=== PATIENT | male | born 1980 | race Caucasian/White ===

== ENCOUNTER → 2018-05-21 10:38 | Outpatient (CLI) | payer BC, SELFPAY ==
[2018-05-23 10:04] LABS: Semen Analysis Post Vas PRESENT
== END ==
LOC: LABSPEC 10:46
DX: N46.9 Male infertility, unspecified (principal)
CPT/HCPCS: 89321

== ENCOUNTER 2025-07-06 06:12 | Emergency (ER) | payer BC, SELFPAY ==
[2025-07-06 06:12] VITALS: BP 125/85; PULSE 115; RESP 19; TEMP 36.9; O2SAT 96; BMI 34.5
[2025-07-06 06:15] VITALS: BP 127/77; PULSE 115; RESP 19; TEMP 36.9; O2SAT 93
[2025-07-06] MEDS: Ketorolac 30 MG/ML Syringe IV (06:48)
[2025-07-06] MEDS: 0.9% Normal Saline (1000mL) 1,000 ML 999 ML IV ×2 (06:48→08:05)
--- NOTE | 2025-07-06 06:53 | EX.ED.DYSGE1 ---
HPI History of Present Illness Chief Complaint: Fever Informant: patient and spouse/S.O. Narrative Narrative: Patient is a 45-year-old male with past medical history of vaping but otherwise denies any previous medical problems. He states multiple people at home have been sick with "the flu". He states he has had subjective fevers and chills for the past 2 to 3 days. He states yesterday he felt he may be getting over his symptoms but then awoke this morning with fever once again as well as muscle aches and fatigue. Therefore with the worsening symptoms he was concern for potential infection and dehydration and therefore presents for evaluation [facility] Medical History no medical history Home Medications Medication Instructions Recorded Last Taken Type dupilumab 300 mg/2 mL subcutaneous mg subcut 07/06/25 Unknown History pen injector (DupixDrivy) ondansetron 4 mg disintegrating 4 mg PO TID PRN nausea and 07/06/25 Unknown Rx tablet vomiting #21 tabs prednisone 20 mg tablet 40 mg (2 x 20 mg) PO DAILY 5 days 07/06/25 Unknown Rx #10 tabs semaglutide (weight loss) 2.4 2.4 mg subcut QWEEK 07/06/25 Unknown History mg/0.75 mL subcutaneous pen injector (Wegovy) Allergy/AdvReac Type Severity Reaction Status Date / Time No Known Allergies Allergy Verified 07/06/25 06:13 Surgical History no surgical history Social History Smoking Status: Former smoker [facility] ED Constitutional Constitutional ED: Reports chills, fever(s) and other Details: Positive fatigue Eyes Eyes: Denies change in vision ENT ENT ED: Reports rhinorrhea and sore throat Cardiovascular Cardiovascular: Denies chest pain Respiratory/Chest Respiratory/Chest: Reports cough; Denies dyspnea Gastrointestinal Gastrointestinal: Reports nausea; Denies abdominal pain, diarrhea or vomiting Genitourinary Genitourinary ED: Denies dysuria Musculoskeletal Musculoskeletal: Reports myalgias Integumentary Denies rash Neurologic Neurologic: Denies headache(s) Hematologic/Lymphatic Hematologic/Lymphatic: Denies easy bleeding or easy bruising EXAM Physical Exam Const Vital Signs: 07/06/25 06:12 07/06/25 06:12 07/06/25 06:15 Temperature 98.5 F 98.5 F Temperature Source Oral Oral Pulse Rate 115 H 115 H Respiratory Rate 19 H 19 H Respiratory Effort Normal Non-Labored Blood Pressure 125/85 H 127/77 H Blood Pressure Mean 98 93 Pulse Ox 96 93 Oxygen Delivery Method Room Air Room Air 07/06/25 07:16 Temperature 98.8 F Temperature Source Oral Pulse Rate 90 Respiratory Rate 16 Respiratory Effort Blood Pressure 126/75 H Blood Pressure Mean 92 Pulse Ox 95 Oxygen Delivery Method Room Air Positive well nourished and well developed General Appearance ED: well developed; Negative for pallor HEENT HEENT Narrative: Normocephalic atraumatic No tongue or lip swelling no oral lesions no airway edema or compromise Cobblestoning is noted in the posterior pharynx consistent with sinus drainage; no secondary findings to suggest infection Mucous membranes are mildly dry and tacky Eyes PERRL and EOMs intact bilaterally General Eye ED: Negative for scleral icterus Neck supple Neck Narrative: Positive anterior cervical adenopathy is noted No nuchal rigidity or meningeal signs Resp normal respiratory effort Resp Narrative: Breath sounds are slight diminished throughout with faint expiratory wheeze in the bilateral lower lobes but no nasal flaring retractions tachypnea or accessory muscle use Cardio regular rhythm Rate: tachycardic and other Other Details: Tachycardic rate with regular rhythm No murmurs rubs or gallops Radial and carotid pulses are equal and symmetric GI non-tender, non-distended and no masses GI Narrative: Abdomen is soft nontender and nondistended with hyperactive bowel sounds No voluntary guarding or rigidity or pulsatile mass No peritoneal signs Auscultation: hyperactive bowel sounds Palpation: soft Extremity normal to inspection Extremity Narrative: No asymmetric edema no pitting edema negative Homans' sign bilaterally Neuro oriented x3, CN's II-XII intact bilaterally and no sensory deficits noted Sensorium / Orientation: alert Motor Exam: strength 5/5 throughout Psych mental status grossly normal Skin no rashes or lesions noted and No skin turgor normal Skin Narrative: Skin turgor is slightly increased General Skin Exam: Negative for jaundice or pallor MDM MDM MDM Narrative Medical decision making narrative: Patient arrived to the ER with spontaneous resolution of his reported fever at home but otherwise he was mildly tachycardic. He reports multiple sick contacts at home with similar symptoms and his presentation is most consistent with viral infection such as COVID influenza or RSV. Therefore viral swab will be obtained. His pulse ox is in the mid 90s on room air he does not have any increased work of breathing and by physical exam there is no obvious findings to suggest pneumonia so I felt no need for chest x-ray. Based on his mild tachycardia and increased skin tenting I do feel that he has findings concerning for mild dehydration and therefore he was given 2 L of IV fluid and in order to help resolve his myalgias he was given Toradol and Decadron. After receiving his treatment he reported improvement of symptoms and vital stabilized. His viral swab was positive for influenza A consistent with his exposure and symptoms. As he is not in respiratory distress or requiring supplemental oxygen or showing signs of sepsis there is no need for further intervention and he is otherwise safe for discharge with symptomatic care History & Record Review Discussion w/independent historian: Patient and Significant other Discharge Plan Triage Chief Complaint: Fever ED Provider: Eric Montano Dx/Rx/DC Orders Clinical Impression: Viral syndrome, Dehydration Instructions: ED Dehydration (Adult), ED Viral Syndrome (Adult) Prescriptions: New prednisone 20 mg tablet 40 mg PO DAILY 5 Days Qty: 10 0RF ondansetron 4 mg tablet,disintegrating 4 mg PO TID PRN (Reason: nausea and vomiting) Qty: 21 0RF No Action Dupixent Pen 300 mg/2 mL pen injector SUBCUT Patient Comments: [NO ORIGINAL SIG] Wegovy 2.4 mg/0.75 mL pen injector 2.4 mg subcut QWEEK Primary Care Provider: Miguelito SILVA Referrals: Miguelito SILVA [Other] Activity Restrictions/Additional Instructions: You tested negative for influenza COVID and RSV however your symptoms indicate you have a other viral infection. This should resolve spontaneously over the next 2 to 5 days. Take the prescribed medication as directed to control inflammation and nausea and keep yourself well-hydrated. Use Tylenol and/or Motrin for pain and fever control. If symptoms worsen or you have any further concerns return to the ER for repeat evaluation Print Language: Tristanian Disposition Disposition: Home, Self Care
--- OUTSIDE RECORDS SUMMARY | 2025-07-06 06:54 | XMS RPT_ITS | CCD ---
Author Organization [facility] Care Team Providers Care Truck Greaser Name Role Phone AKHIL HASTINGS Unavailable Unavailable AKHIL HASTINGS Unavailable Unavailable Primay Care Physicia, No Unavailable Unavail able Thomas Patterson Admitting Unavailable Thomas Patterson Attending Unavailable Unavailable Primary Care Provider JOHNATHAN Rebollar Referring Unavailable TENISHA CEVALLOS CNP Attending Unavailable FEI, SARPREET Primary Care Unavailable RAMULEWIS LAMAS CNP Attending Unavailab le FEI, SARPREET Primary Care Unavailable FEI, SARPREET Primary Care Unavailable LEWIS GUALLPA CNP Attending Unavailab le FEI, SARPREET Primary Care Unavailable RAMULEWIS LAMAS CNP Attending Unavailab le FEI, SARPREET Primary Care Unavailable FEI, SARPREET Primary Care Unavailable TENISHA CEVALLOS CNP Attending Unavailable JOI MOYA Attending Unavailable NIRMALA PAGAN Referring Unavailable [facility]I [facility] Physician FEI, SARPREET Primary Care Unavailable FEI, SARPREET Primary Care Unavailable FEI, SARPREET Primary Care Unavailable FEI, SARPREET Primary Care Unavailable [employer] DIRECTOR-ORTHOTICS TECHNICIANKAROL Referring Unavailab le FEI, SARPREET Primary Care Unavailable [employer] DIRECTOR-ORTHOTICS TECHNICIANKAROL Referring Unavailab le FEI, SARPREET Primary Care Unavailable [employer] DIRECTOR-ORTHOTICS TECHNICIANKAROL Referring Unavailab le FEI, SARPREET Primary Care Unavailable FEI, SARPREET Primary Care Unavailable FEI, SARPREET Primary Care Unavailable DEON AMADOR CNP Attending Unavailable FEI, SARPREET Primary Care Unavailable FEI, SARPREET Primary Care Unavailable Allergies Allergy Classification Reported Allergen(s) Allergy Type Date of Onset Reaction(s) Facility (1 source) ALLERGIES NOT ON FILE; Translations: [ALLERGIES NOT ON FILE] Propensity to adverse reactions (disorder) [facility] 2 Repository Medications Current Medications Medication Drug Class(es) Dates Sig (Normalized) Sig (Original) Dupixent Pre-filled Pen (1 source) Start: 10-21-2023 inject 1 dose by subcutaneous injection once in the morning Dupixent Pre-filled Pen Subcutaneous, ONCE, Date: 10/21/23 11:36:00 AM EDT Start Date: 10/21/23 Status: Ordered Medication Dispense Status: Completed Total Allowed Fills: 1 Fills Dispensed: 0 predniSONE 10 mg oral tablet (1 source) Start: 04-25-2023 End: 05-01-2023 predniSONE (DELTASONE) 10 mg tablet Indications: Acute pain of right knee Take by mouth 6 pills on day 1, 5 pills on day 2, 4 pills on day 3, 3 pills on day 4, 2 pills on day 5, 1 pill on day 6 21 tablet 0 04/25/2023 05/01/2023 Active Comment on above: Take by mouth 6 pill s on day 1, 5 pills on day 2, 4 pills on day 3, 3 pills on day 4, 2 pills on day 5, 1 pill on day 6 rivaroxaban 20 mg oral tablet (3 sources) Factor Xa Inhibitor Start: 10-29-2024 take 1 tablet by mouth once daily in the evening Xarelto 20 mg oral tablet 20 mg 1 tabs, ORAL, QPM, 30 tabs, Date: 03/16/25 9:53:00 AM EDT, [facility], 1 tabs ORAL QPM Start Date: 03/16/25 Status: Ordered Medication Dispense Status: Completed Quantity: 30.0 Unit: tabs Total Allowed Fills: 2 Fills Dispensed: 0 Start: 10-29-2024 End: 11-28-2024 take 1 tablet by mouth once Xarelto Starter Pack 15 mg -20 mg oral tablet 1 packets, ORAL, ONCE, as directed on package labeling; Lot # [id number] Exp 09/01, 1 packets, Date: 10/29/24 12:14:00 PM EDT Start Date: 10/29/24 Stop Date: 11/28/24 Status: Ordered Medication Dispense Status: Completed Quantity: 1.0 Unit: packets Total Allowed Fills: 1 Fills Dispensed: 0 Zepbound (1 source) Start: 06-01-2024 inject 1 dose by subcutaneous injection in the morning Zepbound Subcutaneous, Date: 06/01/24 10:03:00 AM EST Start Date: 06/01/24 Status: Ordered Medication Dispense Status: Completed Total Allowed Fills: 1 Fills Dispensed: 0 Completed/Discontinued Medications Medication Drug Class(es) Dates Sig (Normalized) Sig (Original) sertraline 50 mg oral tablet (1 source) Serotonin Reuptake Inhibitor Start: 04-25-2023 sertraline (ZOLOFT) 50 mg tablet Problems Active Problems Problem Classification Problem Date Documented Da te Episodic/Chronic Anxiety disorders (1 source) Anxiety 04-29-2023 Chronic Joint disorders and dislocations; trauma-related (2 sources) Other disorders of patella, left knee; Translations: [Other disorders of patella, left knee] Onset: 09-02-2023 Chronic Other aftercare (1 source) Surgical follow-up 02-28-2024 Episodic Other male genital disorders (1 source) Male infertility, unspecified; Translations: [N46.9 - Male infertility, unspecified] Onset: 05-21-2018 Episodic Other nervous system disorders (2 sources) Other chronic pain; Translations: [Other chronic pain] Onset: 09-02-2023 Chronic Other non-traumatic joint disorders (1 source) Pain in right knee; Translations: [Acute pain of right knee] Onset: 04-25-2023 Episodic Other nutritional; endocrine; and metabolic disorders (1 source) Body mass index 40+ - severely obese 07-30-2023 Chronic Other nutritional; endocrine; and metabolic disorders (1 source) Morbid obesity 04-29-2023 Chronic Residual codes; unclassified (1 source) Past history of procedure 06-01-2024 Episodic Varicose veins of lower extremity (2 sources) Venous varices; Translations: [Asymptomatic varicose veins of unspecified lower extremity] Onset: 05-20-2014 07-03-2021 Episodic Past or Other Problems Problem Classification Problem Date Documented Da te Episodic/Chronic Other non-traumatic joint disorders (2 sources) Pain in left knee; Translations: [Pain in left knee] Onset: 09-02-2023 Episodic Residual codes; unclassified (2 sources) Localized edema; Translations: [Localized edema] Onset: 09-02-2023 Episodic Results Test Name Value Interpretation Reference Range Facility AUTO DIFFon 07-20-2024 Baso Count 0.04 x1000 Normal 0.00-0.20 [facility] Comment on above: Order Comment: FX TO [phone] Performed By: #### 1 33379, 2611752, 912837, 0370530, 404079 #### [facility] [address] [place] [address] 90640 Solderer: Sigifredo Pace MD Basos % 0.6 % Normal [facility] Comment on above: Order Comment: FX TO [phone] Performed By: #### 1 96954, 2407003, 236469, 3197372, 256272 #### [facility] [address] [place] [address] 19321 Solderer: Sigifredo Pace MD Eos Count 0.06 x1000 Normal 0.00-0.50 [facility] Comment on above: Order Comment: FX TO [phone] Performed By: #### 1 76863, 2517459, 178764, 1523088, 909367 #### [facility] [address] [place] [address] 46201 Solderer: Sigifredo Pace MD Eosinophils/100 WBC (Bld) 1.0 % Normal [facility] Comment on above: Order Comment: FX TO [phone] Performed By: #### 1 31743, 6408217, 417048, 3836292, 958792 #### [facility] [address] [place] [address] 51292 Solderer: Sigifredo Pace MD Lymph Count 1.84 x1000 Normal 1.20-4.80 [facility] Comment on above: Order Comment: FX TO [phone] Performed By: #### 1 08392, 6185514, 371285, 8058346, 311321 #### [facility] [address] [place] [address] 70377 Solderer: Sigifredo Pace MD Lymphocytes/100 WBC (Bld) 29.0 % Normal [facility] Comment on above: Order Comment: FX TO [phone] Performed By: #### 1 24641, 9410873, 486983, 7922477, 205554 #### [facility] [address] [place] [address] 27485 Solderer: Sigifredo Pace MD Haywood Count 0.35 x1000 Normal 0.10-1.00 [facility] Comment on above: Order Comment: FX TO [phone] Performed By: #### 1 87471, 8384827, 464890, 0275495, 006826 #### [facility] [address] [place] [address] 39199 Solderer: Sigifredo Pace MD Monocytes/100 WBC (Bld) 5.5 % Normal [facility] Comment on above: Order Comment: FX TO [phone] Performed By: #### 1 29926, 5577930, 213228, 6526893, 751242 #### [facility] [address] [place] [address] 99379 Solderer: Sigifredo Pace MD Neutrophil Count (ANC) 4.05 x1000 Normal 1.40-8.80 [facility] Comment on above: Order Comment: FX TO [phone] Performed By: #### 1 29816, 6203362, 865609, 7429142, 990284 #### [facility] [address] [place] [address] 94426 Solderer: Sigifredo Pace MD Neutrophils/100 WBC (Bld) 63.9 % Normal [facility] Comment on above: Order Comment: FX TO [phone] Performed By: #### 1 58997, 5004413, 976844, 0555576, 388682 #### [facility] [address] [place] [address] 92578 Solderer: Sigifredo Pace MD COMPMETAon 07-20-2024 Albumin [Mass/Vol] 3.7 g/dL Normal 3.4-5.0 [facility] Comment on above: Order Comment: FX TO [phone] Performed By: #### 1 47214, 3389134, 319784, 6914093, 452602 #### [facility] [address] [place] [address] 23666 Solderer: Sigifredo Pace MD Albumin/Globulin [Mass ratio] 1.2 {ratio} Normal [facility] Comment on above: Order Comment: FX TO [phone] Performed By: #### 1 00434, 7393141, 342183, 1134304, 320688 #### [facility] [address] [place] [address] 68556 Solderer: Sigifredo Pace MD Alk Phos 73 unit/L Normal 45-117 [facility] Comment on above: Order Comment: FX TO [phone] Performed By: #### 1 67807, 7596927, 993009, 1685866, 237929 #### [facility] [address] [place] [address] 25806 Solderer: Sigifredo Pace MD Bilirubin [Mass/Vol] 0.40 mg/dL Normal 0.30-1.20 [facility] Comment on above: Order Comment: FX TO [phone] Result Comment: Use of this assay is not recommended for patients undergoing treatment with eltrombopag due to the potential for falsely elevated results. Performed By: #### 1 73579, 6415238, 369545, 0899651, 265624 #### [facility] [address] [place] [address] 07684 Solderer: Sigifredo Pace MD Calcium [Mass/Vol] 9.4 mg/dL Normal 8.7-10.4 [facility] Comment on above: Order Comment: FX TO [phone] Performed By: #### 1 52923, 3955104, 410880, 7526131, 414874 #### [facility] [address] [place] [address] 19968 Solderer: Sigifredo Pace MD Chloride [Moles/Vol] 105 mmol/L Normal 98-107 [facility] Comment on above: Order Comment: FX TO [phone] Performed By: #### 1 63195, 9827200, 197178, 6573415, 968365 #### [facility] [address] [place] [address] 08902 Solderer: Sigifredo Pace MD CO2 [Moles/Vol] 31.0 mmol/L Normal 20.0-31.0 [facility] Comment on above: Order Comment: FX TO [phone] Performed By: #### 1 97635, 4758770, 353356, 5469598, 047085 #### [facility] [address] [place] [address] 07880 Solderer: Sigifredo Pace MD Creatinine [Mass/Vol] 0.9 mg/dL Normal 0.6-1.1 [facility] Comment on above: Order Comment: FX TO [phone] Performed By: #### 1 13012, 8956583, 273285, 9577591, 204966 #### [facility] [address] [place] [address] 92008 Solderer: Sigifredo Pace MD GFR AA >[address] [facility] Comment on above: Order Comment: FX TO [phone] Result Comment: Afri can [place] Citizen GFR Calc Medical judgement is necessary to interpret GFR. The calculated GFR may not accurately reflect renal status in patients >70 years, women, acutely ill hospitalized patients and patients with acute renal failure or known renal disease. The MDRD GFR formula is valid only for adults greater than 18 years of age. Note: Creatinine clearance (not GFR) should be used for drug dosing. Performed By: #### 1 89296, 1840880, 030284, 0706188, 152271 #### [facility] [address] [place] [address] 68928 Solderer: Sigifredo Pace MD Globulin (S) [Mass/Vol] 3.1 g/dL Normal [facility] Comment on above: Order Comment: FX TO [phone] Performed By: #### 1 90051, 6523896, 909792, 1031893, 951252 #### [facility] [address] [place] [address] 59652 Solderer: Sigifredo Pace MD Glomerular Filtration Rate >[address] [facility] Comment on above: Order Comment: FX TO [phone] Result Comment: Non- GFR Calc Medical judgement is necessary to interpret GFR. The calculated GFR may not accurately reflect renal status in patients >70 years, women, acutely ill hospitalized patients and patients with acute renal failure or known renal disease. The MDRD GFR formula is valid only for adults greater than 18 years of age. Note: Creatinine clearance (not GFR) should be used for drug dosing. Performed By: #### 1 74757, 0660472, 181878, 1398463, 159227 #### [facility] [address] [place] [address] 02994 Solderer: Sigifredo Pace MD Glucose [Mass/Vol] 85 mg/dL Normal 74-106 [facility] Comment on above: Order Comment: FX TO [phone] Performed By: #### 1 75182, 1302230, 731162, 6674584, 124488 #### [facility] [address] [place] [address] 28436 Solderer: Sigifredo Pace MD GOT 14 unit/L Low 15-37 [facility] Comment on above: Order Comment: FX TO [phone] Performed By: #### 1 14323, 6843841, 104146, 0565618, 286261 #### [facility] [address] [place] [address] 63951 Solderer: Sigifredo Pace MD GPT 12 unit/L Normal 10-49 [facility] Comment on above: Order Comment: FX TO [phone] Performed By: #### 1 97474, 0680168, 623181, 6001308, 361052 #### [facility] [address] [place] [address] 51042 Solderer: Sigifredo Pace MD Osmolality [Osmolality] 283 mosm/kg Normal 275-295 [facility] Comment on above: Order Comment: FX TO [phone] Performed By: #### 1 80784, 5572044, 153302, 7206430, 101780 #### [facility] [address] [place] [address] 79969 Solderer: Sigifredo Pace MD Potassium [Moles/Vol] 4.2 mmol/L Normal 3.5-5.1 [facility] Comment on above: Order Comment: FX TO [phone] Result Comment: Spec imen slightly hemolyzed. Results may be affected. Performed By: #### 1 50950, 5531360, 014806, 1422371, 235778 #### [facility] [address] [place] [address] 06596 Solderer: Sigifredo Pace MD Protein [Mass/Vol] 6.8 g/dL Normal 5.7-8.2 [facility] Comment on above: Order Comment: FX TO [phone] Result Comment: Tota l Protein results may be increased in patients receiving dextran as a blood volume direct of real estate Performed By: #### 1 44977, 9893034, 459686, 8403973, 947019 #### [facility] [address] [place] [address] 11830 Solderer: Sigifredo Pace MD Sodium [Moles/Vol] 142 mmol/L Normal 135-145 [facility] Comment on above: Order Comment: FX TO [phone] Performed By: #### 1 31261, 5893541, 013610, 8563597, 531857 #### [facility] [address] [place] [address] 83484 Solderer: Sigifredo Pace MD Urea nitrogen [Mass/Vol] 13 mg/dL Normal 9-23 [facility] Comment on above: Order Comment: FX TO [phone] Result Comment: - Ve nipuncture should occur prior to N-Acetyl Cysteine (NAC) or Metamizole (Sulpyrine) administration due to the potential for falsely depressed results. - Blood samples from some patients with monoclonal gammopathies may produce falsely elevated results Performed By: #### 1 76513, 8691719, 053232, 6339824, 996745 #### [facility] [address] [place] [address] 61314 Solderer: Sigifredo Pace MD Urea nitrogen/Creatinin e [Mass ratio] 14.4 mg/mg Normal [facility] Comment on above: Order Comment: FX TO [phone] Performed By: #### 1 29127, 0225374, 975316, 8486327, 813120 #### [facility] [address] [place] [address] 60757 Solderer: Sigifredo Pace MD HEMOon 07-20-2024 DIFF? No Normal [facility] Comment on above: Order Comment: FX TO [phone] Performed By: #### 1 07928, 8170206, 271993, 2118251, 583218 #### [facility] [address] [place] [address] 98886 Solderer: Sigifredo Pace MD Erythrocyte distribution width (RBC) [Ratio] 13.7 % Normal 11.5-14.5 [facility] Comment on above: Order Comment: FX TO [phone] Performed By: #### 1 72319, 1820266, 343444, 5758718, 541495 #### [facility] [address] [place] [address] 49286 Solderer: Sigifredo Pace MD Hematocrit (Bld) [Volume fraction] 42.2 % Normal 41.0-52.0 [facility] Comment on above: Order Comment: FX TO [phone] Performed By: #### 1 28993, 0021136, 958892, 0380519, 546346 #### [facility] [address] [place] [address] 59889 Solderer: Sigifredo Pace MD Hemoglobin (Bld) [Mass/Vol] 14.0 g/dL Normal 13.5-17.5 [facility] Comment on above: Order Comment: FX TO [phone] Performed By: #### 1 80689, 9813821, 120238, 0401753, 069286 #### [facility] [address] [place] [address] 42721 Solderer: Sigifredo Pace MD Instr WBC 6.[address] [facility] Comment on above: Order Comment: FX TO [phone] Performed By: #### 1 40121, 4111695, 750209, 9355146, 177369 #### [facility] [address] [place] [address] 74876 Solderer: Sigifredo Pace MD MCH (RBC) [Entitic mass] 28.2 pg Normal 27.0-34.0 [facility] Comment on above: Order Comment: FX TO [phone] Performed By: #### 1 80847, 4301200, 581420, 8132942, 444234 #### [facility] [address] [place] [address] 78733 Solderer: Sigifredo Pace MD MCHC (RBC) [Mass/Vol] 33.2 g/dL Normal 32.0-37.0 [facility] Comment on above: Order Comment: FX TO [phone] Performed By: #### 1 04780, 4782013, 377346, 2373676, 099196 #### [facility] [address] [place] [address] 61970 Solderer: Sigifredo Pace MD MCV (RBC) [Entitic vol] 84.9 fL Normal 80.0-100.0 [facility] Comment on above: Order Comment: FX TO [phone] Performed By: #### 1 48498, 2729050, 965964, 4900478, 536998 #### [facility] [address] [place] [address] 83236 Solderer: Sigifredo Pace MD Nucleated RBC 0 /100WBC Normal [facility] Comment on above: Order Comment: FX TO [phone] Performed By: #### 1 71828, 0740991, 874487, 5573856, 390450 #### [facility] [address] [place] [address] 43960 Solderer: Sigifredo Pace MD Platelet 232 x10 Normal 150-450 [facility] Comment on above: Order Comment: FX TO [phone] Performed By: #### 1 76657, 2853033, 017917, 9502565, 128512 #### [facility] [address] [place] [address] 79971 Solderer: Sigifredo Pace MD Platelet mean volume (Bld) [Entitic vol] 10.4 fL Normal 7.4-10.4 [facility] Comment on above: Order Comment: FX TO [phone] Performed By: #### 1 29882, 0836157, 001774, 6006690, 573602 #### [facility] [address] [place] [address] 77890 Solderer: Sigifredo Pace MD RBC 4.97 x10 Normal 4.70-6.10 [facility] Comment on above: Order Comment: FX TO [phone] Result Comment: Note : RBC morphology is normal unless otherwise stated. Evaluation performed only if differential is requested. Performed By: #### 1 15827, 9562300, 667279, 2458485, 031114 #### [facility] [address] [place] [address] 05829 Solderer: Sigifredo Pace MD WBC 6.3 x10 Normal 4.5-11.0 [facility] Comment on above: Order Comment: FX TO [phone] Performed By: #### 1 77072, 9489964, 700357, 8123138, 155980 #### [facility] [address] [place] [address] 8110630 Solderer: Sigifredo Pace MD HGB A1Con 07-20-2024 HbA1c (Bld) [Mass fraction] 5.0 % Normal [facility] Comment on above: Order Comment: FX TO [phone] Result Comment: Refe rence Range: Diabetic Greater than or equal to 6.5 % Prediabetic 5.7?6.4 % Normal Less than 5.7 % Performed By: #### 1 71008 #### [facility] [address] [place] [address] 7195630 Solderer: Sigifredo Pace MD LIPID PNLon 07-20-2024 Calculated LDL Cholesterol 111 mg/dL Normal 60-130 [facility] Comment on above: Order Comment: FX TO [phone] Result Comment: <100 mg/dl Optimal 100-129 mg/dl Near Optimal 130-159 mg/dl Borderline High 160-189 mg/dl High >=190 mg/dl Very High Performed By: #### 1 43188, 5404052, 826384, 3312580, 472537 #### [facility] [address] [place] [address] 44130 Solderer: Sigifredo Pace MD Cholesterol [Mass/Vol] 185 mg/dL Normal 100-200 [facility] Comment on above: Order Comment: FX TO [phone] Result Comment: Myriam puncture should occur prior to N-Acetyl Cysteine (NAC) or Metamizole (Sulpyrine) administration due to the potential for falsely depressed results. Performed By: #### 1 88004, 4721457, 353173, 6406855, 119116 #### [facility] [address] [place] [address] 44130 Solderer: Sigifredo Pace MD Cholesterol in HDL [Mass/Vol] 48 mg/dL Normal 40-60 [facility] Comment on above: Order Comment: FX TO [phone] Result Comment: Dire ct HDL Venipuncture should occur prior to metamizole (sulpyrine) administration due to the potential for falsely depressed results Performed By: #### 1 11614, 0944124, 346389, 9534252, 393690 #### [facility] [address] [place] [address] Solderer: Sigifredo Pace MD Total Chol/HDL Chol Ratio 3.[address] [facility] Comment on above: Order Comment: FX TO [phone] Performed By: #### 1 67875, 5547989, 571725, 2257313, 340742 #### [facility] [address] [place] [address] 78099 Solderer: Sigifredo Pace MD Triglyceride [Mass/Vol] 132 mg/dL Normal 30-150 [facility] Comment on above: Order Comment: FX TO [phone] Result Comment: - Ve nipuncture should occur prior to N-Acetyl Cysteine (NAC) or Metamizole (Sulpyrine) administration due to the potential for falsely depressed results - Use of this assay is not recommended for patients being treated with etamsylate because it causes falsely decreased results Performed By: #### 1 82559, 2725307, 459539, 1346390, 124649 #### [facility] [address] [place] [address] [id number] Solderer: Sigifredo Pace MD Registration Documents-Other on 07-20-2024 Registration Documents-Other Normal [facility] TSHon 07-20-2024 TSH Qn 1.15 m[IU]/L Normal 0.55-4.78 [facility] Comment on above: Order Comment: FX TO [phone] Result Comment: - Do not use samples that contain fluorescein. Fluorescein levels > 0.24 ?g/mL may decrease results in this assay - Patients undergoing retinal fluorescein angiography can retain amounts of fluorescein in the body for up to 48?72 hours post-treatment. Such samples can produce falsely depressed values when tested with this assay, and should not be tested Reference Intervals (if applicable): First trimester: 0.6-3.4 uIU/mL Second trimester: 0.37-3.6 uIU/mL Third trimester: 0.38-4.04 uIU/mL Reference: [email or web address] (04/2023) Performed By: #### 1 [id number], [id number] #### [facility] [id number] [id number] Solderer: Sigifredo Pace MD [facility] Physician Progress Noteon 06-01-2024 [facility] Physician Progress Note LILY RAMOS :1980 Registration Date:06/01/2024 Chief Complaint Patient is here today for a 3 month follow up s/p Left GSV RFA (42 cm) done on 02/21/2024. No complaints today. History of Present Illness Lily Ramos is a 44-year-old male who presents for 3-month follow-up s/p left GSV RFA on 02/21/2024. Venous duplex on 02/24/2024 was negative for DVT or SVT of the LLE. Last office visit 02/28/2024 was having some tenderness over the left groin, upper medial thigh region, and medial upper calf. Erythema had resolved. At today's visit, he has no tenderness or redness. Symptoms have resolved, the bulging vein is no longer visible, and leg swelling has mostly resolved. He is very pleased with the results of his procedure. He continues to wear compression regularly at work, otherwise occasionally. Review of Systems Constitutional: Feels well, no fever, no chills Respiratory: No shortness of breath Cardiovascular: No chest pain Gastrointestinal: No nausea, no vomiting, no abdominal discomfort Peripheral Vascular: No leg cramps, no numbness, no swelling Neurological: No dizziness, no problems with attention or coordination Musculoskeletal: No limitation of movement, no muscle or joint pain Integumentary: No open areas or wounds Physical Exam Vitals & Measurements Systolic Blood Pressure: 119 mmHg (06/01/24 10:06:00) Diastolic Blood Pressure: 75 mmHg (06/01/24 10:06:00) Temperature Oral (F): 98.4 degF (06/01/24 10:06:00) SpO2: 96 % (06/01/24 10:06:00) Peripheral Pulse Rate: 64 bpm (06/01/24::) Mean Arterial Pressure: 90 mmHg (06/01/24:06:) BP Site2: Right arm (06/01/24::) Height/Length Measured: 185 cm (06/01/24:06:00) Weight Measured: 142 kg (06/01/24:06:) Body Mass Index Measured: 41.49 kg/m2 (06/01/24:06:00) Weight Measured - lbs2: 312 lb (06/01/24::) Height/Length Measured - in2: 73 in (06/01/24::) Body Mass Index Measured English2: 41.16 kg/m2 (06/01/24::) BSA: 2.7 m2 (06/01/24::) Ht/Wt Measurement Refused by Patient?2: No (06/01/24:) Depression Screening Scores Initial Depression Screen Score: 0 (06/01/24::) Fall Risk Assessment Is the patient ambulatory (mobile): Yes (06/01/24::) Have you had a fall within the past: No (06/01/24::) Have you had 2 or more falls in the past: No (06/01/24::) General: Awake and alert, no distress, pleasant Skin: Warm and dry, intact Respiratory: Respirations quiet and unlabored on room air Cardiovascular: Normal rate Extremities: No edema, temperature and color symmetric to BLE, no erythema, no bulging veins, no skin changes Musculoskeletal: ROM intact and symmetric Neurological: Alert and oriented to person, place, and time, no focal deficits Psychological: Appropriate mood and affect Patient Instructions Follow up as needed Wear compression stockings during the daytime and remove them for showers and bedtime only 20-30 mmHg Knee High Compression is preferred, but you can try any between 10-20 mmHg Compression stockings eventually stretch out and should be replaced at least every 6 months Compression stores: [employer], [employer], any running or nursing uniform store Brand names: CEP (compression engineering products), [employer], [employer], [employer], [employer] carries their own brand in addition to other brands and sell them single or in packs of 3 for a reasonable oliva Measures to promote vein health: 1. Regular use of compression stockings 2. Elevating the feet and legs (above the level of your heart) for 10-20 minutes whenever possible and ideally every 2-4 hours 3. Walking- to improve the muscle pump of the calf 4. Avoid trauma to varicose veins 5. Maintenance of an ideal weight and weight reduction if you are overweight 6. Avoid prolonged standing or sitting 7. Consult with vascular or wound care at the first signs of a skin ulcer or cellulitis 8. Maintaining healthy skin by using emollients/creams/lotions Medication Reconciliation What How Much When Instructions Unchanged dupilumab (Dupixent Pre-filled Pen) Subcutaneous ONCE Unchanged tirzepatide (Zepbound) Subcutaneous What How Much When Why Comments Stop Taking hydrOXYzine (hydrOXYzine hydrochloride 25 mg oral tablet) 1 Tabs Oral THREE TIMES A DAY as needed for as needed for itching Stop Taking multivitamin 1 Tabs Oral DAILY Stop Taking phentermine (phentermine 37.5 mg oral tablet) 1 Tabs Oral DAILY BMI 40.0-44.9, adult Duration: 30 Days BMI 40.26 Stop Taking sertraline (sertraline 50 mg oral tablet) 1 Tabs Oral DAILY Assessment/Plan This Visit Diagnosis 1. Status post endovenous radiofrequency ablation (RFA) of saphenous vein Z98.890 Symptoms have resolved, no bulging veins, no erythema or edema He is very pleased with the results of his procedure Inform (more content not included)... Normal [facility] Ambulatory Clinical Summary n 06-01-2024 Ambulatory Clinical Summary LILY RAMOS :1980 [facility]:[id number] Registration Date:06/01/2024 Ambulatory Visit Instructions Your Diagnosis Status post endovenous radiofrequency ablation (RFA) of saphenous vein Your Care Team Attending Physician - Vascular , [facility] [place] Primary Care Physician - FEI DESHPANDE-DERRICK LUIS Procedures Performed cyst on tailbone Tonsillectomy and Adenoidectomy. [place] / Teeth Extractions Discharge Vitals Temperature (Oral) 98.4 DEGF Heart Rate (Peripheral) 64 Blood Pressure 119/75 Height 72.83 in (185 cm) Weight 313.11 lb (142 kg) BMI 41.49 Systolic Blood Pressure: 119 mmHg (06/01/24:06:00) Diastolic Blood Pressure: 75 mmHg (06/01/24:06:00) Temperature Oral (F): 98.4 degF (06/01/24:06:00) SpO2: 96 % (06/01/24::) Peripheral Pulse Rate: 64 bpm (06/01/24:06:00) Mean Arterial Pressure: 90 mmHg (06/01/24::) BP Site2: Right arm (06/01/24::) Height/Length Measured: 185 cm (06/01/24::) Weight Measured: 142 kg (06/01/24::) Body Mass Index Measured: 41.49 kg/m2 (06/01/24::) Weight Measured - lbs2: 312 lb (06/01/24::) Height/Length Measured - in2: 73 in (06/01/24:) Body Mass Index Measured English2: 41.16 kg/m2 (06/01/24::) BSA: 2.7 m2 (06/01/24::) Ht/Wt Measurement Refused by Patient?2: No (06/01/24::) What to do next Instructions From Your Doctor Follow up as needed Wear compression stockings during the daytime and remove them for showers and bedtime only 20-30 mmHg Knee High Compression is preferred, but you can try any between 10-20 mmHg Compression stockings eventually stretch out and should be replaced at least every 6 months Compression stores: [employer], [employer], any running or nursing uniform store Brand names: CEP (compression engineering products), [employer], [employer], [employer], [employer] carries their own brand in addition to other brands and sell them single or in packs of 3 for a reasonable oliva Measures to promote vein health: 1. Regular use of compression stockings 2. Elevating the feet and legs (above the level of your heart) for 10-20 minutes whenever possible and ideally every 2-4 hours 3. Walking- to improve the muscle pump of the calf 4. Avoid trauma to varicose veins 5. Maintenance of an ideal weight and weight reduction if you are overweight 6. Avoid prolonged standing or sitting 7. Consult with vascular or wound care at the first signs of a skin ulcer or cellulitis 8. Maintaining healthy skin by using emollients/creams/lotions Scheduled Follow-Up Appointments No results Medications What How Much When Why Instructions Unchanged dupilumab (Dupixent Pre-filled Pen) Subcutaneous ONCE Unchanged hydrOXYzine (hydrOXYzine hydrochloride 25 mg oral tablet) 1 Tabs Oral THREE TIMES A DAY as needed for as needed for itching Unchanged multivitamin 1 Tabs Oral DAILY Unchanged phentermine (phentermine 37.5 mg oral tablet) 1 Tabs Oral DAILY BMI 40.0-44.9, adult Duration: 30 Days BMI 40.26 Unchanged sertraline (sertraline 50 mg oral tablet) 1 Tabs Oral DAILY Unchanged tirzepatide (Zepbound) Subcutaneous Allergies No Known Allergies Problems Ongoing - Any problem that you are currently receiving treatment for. Anxiety BMI 40.0-44.9, adult Encounter for surgical aftercare following surgery of circulatory system Morbid obesity Status post endovenous radiofrequency ablation (RFA) of saphenous vein Varicose veins of bilateral lower extremities with other complications Common Emergency Awareness Tips IS IT A STROKE? Act FAST and Check for these signs: FACE Does the face look uneven? ARM Does one arm drift down? SPEECH Does their speech sound strange? TIME Call at any sign of stroke Heart Attack Signs Chest discomfort: Most heart attacks involve discomfort in the center of the chest and lasts more than a few minutes, or goes away and comes back. It can feel like uncomfortable pressure, squeezing, fullness or pain. Discomfort in upper body: Symptoms can include pain or discomfort in one or both arms, back, neck, jaw or stomach. Shortness of breath: With or without discomfort. Other signs: Breaking out in a cold sweat, nausea, or lightheaded. Remember, MINUTES DO MATTER. If you experience any of these heart attack warning signs, call to get immediate medical attention! Normal [facility] Comprehensive Intake - Texto n 06-01-2024 Comprehensive Intake - Text Comprehensive Intake Entered On: 06/01/2024 10:08 EST Performed On: 06/01/2024 10:06 EST by Ashley Recinos RN Summary Chief Complaint : Patient is here today for a 3 month follow up s/p Left GSV RFA (42 cm) done on 02/21/2024. No complaints today. Bladder Control Issues? : No Urine Leakage? : No Presence or absence of urinary incontinence assessed : Yes CPT-II Medication list doc'd in medical record : Yes Influenza immunization administered or previously received : Yes Pneumococcal vaccine administered or previously received : No Ashley Recinos RN - 06/01/2024 10:06 EST Measurements Ht/Wt Measurement Refused by Patient? : No Weight Measured : 142 kg(Converted to: 313 lb 1 oz, 313.056 lb) Height/Length Measured : 185 cm(Converted to: 6 ft 1 in, 72.83 in) Body Mass Index Measured : 41.49 kg/m2 Body Mass Index documented : Yes Weight Measured - lbs : 312 lb(Converted to: 312 lb 0 oz, 142 kg) Height/Length Measured - in : 73 in(Converted to: 6 ft 1 in, 185 cm) Body Mass Index Measured Chadian : 41.16 kg/m2 BSA Chadian : 2.7 m2 Ashley Recinos RN - 06/01/2024 10:06 EST Vitals Require BP : Yes Systolic Blood Pressure : 119 mmHg Diastolic Blood Pressure : 75 mmHg Mean Arterial Pressure : 90 mmHg Pulse Rate : 64 bpm BP Site : Right arm Last Systolic BP : less than 130 mmHg Last Diastolic BP : less than 80 mmHg Temperature Oral (F) : 98.4 degF(Converted to: 37 degC) SpO2 : 96 % Pain Present : No actual or suspected pain Pain : 0 Pain severity quantified : No pain present Ashley Recinos RN - 06/01/2024 10:06 EST Infection Screening Travel outside [place] within past 21 days : No Positive COVID test in the last 10 days? : No Exposure to and/or close contact with a person who has a laboratory-confirmed COVID test within the last 48 hours. : No Ashley Recinos RN - 06/01/2024 10:06 EST Depression Screening Is patient currently : None of the Below Feeling Down, Depressed, Hopeless : Not at all Little Interest - Pleasure in Activities : Not at all Initial Depression Screen Score : 0 Depression Screening Score 0 : No Ashley Recinos RN - 06/01/2024 10:06 EST Social History Social History (As Of: 06/01/2024 10:08:44 EST) Alcohol: Beer, 1-2 times per week (Last Updated: 04/26/2021 10:43:42 EDT by Shavon Malik MA) Tobacco: Electronic Cigarette (Last Updated: 04/26/2021 10:43:48 EDT by Shavon Malik MA) Electronic Cigarette (Last Updated: 10/21/2023 11:36:58 EDT by Ashley Recinos RN) Electronic Cigarette (Last Updated: 02/28/2024 11:28:27 EDT by Ashley Recinos RN) Electronic Cigarette (Last Updated: 06/01/2024 10:07:09 EST by Ashley Recinos RN) Substance Abuse: Denies Substance Abuse (Last Updated: 02/08/2021 13:24:20 EDT by Shavon Malik MA ) Falls Risk Assessment Is the patient ambulatory (mobile) : Yes Have you had 2 or more falls in the past year : No Have you had a fall within the past year that has caused an injury : No Patient screen for fall risk : no falls in last year OR 1 fall with no injury in last year Ashley Recinos RN - 06/01/2024 10:06 EST Normal [facility] 04-26-2023 [facility] Telephone ([facility]) -- LILY RAMOS JR. ([id number]) 1980 M Date Time Provider Department 04/26/23 AURELIA DAVIDSON [facility] During your visit today, we recorded the following information about you: Aurelia Davidson APRN.[facility] 04/26/2023 4:57 PM Signed Xray knee negative. Please continue treatment plan discussed at time of exam. Follow up with PCP and or ortho. Yolanda Segal MA 04/26/2023 6:17 PM Signed Patient notified of results, verbalized understanding of instructions given. Yolanda Segal MA Allergies As of Date: 04/26/2023 (No Known Allergies) Date Reviewed: 04/25/2023 Reviewed by: Shirley Peñaloza MA - Fully Assessed Reason for Visit: Results [95] Prescriptions as of 04/26/2023 - sertraline (ZOLOFT) 50 mg tablet - predniSONE (DELTASONE) 10 mg tablet Take by mouth 6 pills on day 1, 5 pills on day 2, 4 pills on day 3, 3 pills on day 4, 2 pills on day 5, 1 pill on day 6 Problem List As Of Date 04/26/2023 Noted Resolved Well adult exam [Z00.00] 05/20/2014 Varicose veins [I83.90] 05/20/2014 Encounter Status:Closed by YOLANDA SEGAL on 04/26/[address] [facility] CNOVon 04-25-2023 CNOV Office Visit ([facility] ) -- LILY RAMOS JR. ([id number]) 1980 M Date Time Provider Department 04/25/23 11:15 AM JOHNATHAN SIMPSON [facility] During your visit today, we recorded the following information about you: Temperature Pulse Respiration Blood pressure 97 degrees 66/minute 21/minute 122/90 Weight 154 kg Johnathan Simpson MD 04/25/2023 11:52 AM Signed Patient presents with: Knee Pain: Right knee pain x 1 week HPI: Right knee pain: Duration: worsening over the last few weeks. Has had similar issue after injury (landed on feet falling off a ladder) a few years ago. Location: medial right knee to the anterior upper tibia Character: tight, band-like Radiation: No. Aggravating: bending, standing, walking, and kneeling Relieving: Pain relievers: Motrin and Tylenol Associated: swelling, popping Pertinent negatives: Denies redness, numbness, locking, giving out PAST MEDICAL HISTORY Diagnosis Date Anxiety and depression Varicose veins of both lower extremities PAST SURGICAL HISTORY Procedure Laterality Date PAST SURGICAL HISTORY OF pylonidal cyst x2 TONSILLECTOMY AND ADENOIDECTOMY HX MEDICATIONS: sertraline (ZOLOFT) 50 mg tablet ALLERGIES: ALLERGIES No Known Allergies VITALS: BP 122/90 Pulse 66 Temp 36.1 ?C (97 ?F) Resp 21 Wt (!) 154 kg (339 lb 9.6 oz) SpO2 98% BMI 44.80 kg/m? PE: Pleasant, in no acute distress. KNEE: right compared to left. No erythema or deformity. Small effusion medial to the patellar tendon. Bilateral varicose veins. FROM without pain. No crepitus. Medial anterior joint line tenderness. Non-tender tibial tuberosity and pes-anserine. Stable to varus and valgus strain. Negative anterior drawer test. Negative posterior drawer test. ASSESSMENT/PLAN: 1. Acute pain of right knee - ICD9: 719.46, ICD10: M25.561 Joint effusion with otherwise benign exam. Seems to have joint inflammation; possible medial meniscus issue. - XR KNEE GENERAL 4V AP BOTH/PA BOTH/LAT/MERC RIGHT - will have performed at [facility]. - PREDNISONE 10 MG TABLET taper. Avoid NSAID's while on steroid treatment (Aleve, Motrin, Advil, ibuprofen, or naproxen). May take acetaminophen (tylenol) as needed for pain relief. Follow up with ortho if not improving with rest, ice after activity, and anti-inflammatory. Johnathan Simpson MD Allergies As of Date: 04/25/2023 (No Known Allergies) Date Reviewed: 04/25/2023 Reviewed by: Shirley Peñaloza MA - Fully Assessed Reason for Visit: Knee Pain [132] Cmt: Right knee pain x 1 week Primary Visit Diagnosis:Acute pain of right knee [M25.561] Order(s):XR KNEE GENERAL 4V AP BOTH/PA BOTH/LAT/MERC RIGHT [[id number]] Order #: [id number] FUTURE predniSONE (DELTASONE) 10 mg tabletTake by mouth 6 pills on day 1, 5 pills on day 2, 4 pills on day 3, 3 pills on day 4, 2 pills on day 5, 1 pill on day 6Disp: 21 tabletRfl: 0 Prescriptions as of 04/25/2023 - sertraline (ZOLOFT) 50 mg tablet - predniSONE (DELTASONE) 10 mg tablet Take by mouth 6 pills on day 1, 5 pills on day 2, 4 pills on day 3, 3 pills on day 4, 2 pills on day 5, 1 pill on day 6 Problem List As Of Date 04/25/2023 Noted Resolved Well adult exam [Z00.00] 05/20/2014 Varicose veins [I83.90] 05/20/2014 Prescriptions ordered this encounter Disp Refills Start End PREDNISONE 10 MG TABLET 21 t* 0 04/25/2023 05/01/2023 Sig: Take by mouth 6 pills on day 1, 5 pills on day 2, 4 pills on day 3, 3 pills on day 4, 2 pills on day 5, 1 pill on day 6 Medications Discontinued During This Encounter Prescriptions - scopolamine (TRANSDERM-SCOP) 1.5 mg (1 mg over 3 days) (Discontinued) Reported on 04/25/2023 Encounter Status:Closed by JOHNATHAN SIMPSON on 04/25/[address] [facility] XR KNEE 4V AP/PA BOTH+LAT/ME R RTon 04-25-2023 XR KNEE 4V AP/PA BOTH+LAT/VINCE RT * * *Final Report* * * DATE OF EXAM: Apr 25 2023 12:04PM WRX [id number] - XR KNEE 4V AP/PA BOTH+LAT/VINCE RT / PROCEDURE REASON: Acute pain of right knee * * * * Physician Interpretation * * * * EXAM TITLE: XR KNEE 4V AP/PA BOTH+LAT/VINCE RT EXAM DATE/TIME: 04/25/2023 12:04 PM COMPARISON: None. CLINICAL INDICATION/HISTORY: Acute right knee pain. TECHNIQUE: AP/PA, lateral and sunrise views of the right knee are presented. FINDINGS: No acute fractures or subluxations are noted. No obvious osteophyte formation. The joint spaces are well preserved. There is no evidence of joint effusion. The mineralization of the bones is normal. There is no significant soft tissue swelling. Nodules: Tortuous and dilated veins seen bilaterally. IMPRESSION: Unremarkable right knee x-ray. Hospital Corpsman: VINEET Transcribe Date/Time: Apr 26 2023 4:49P Dictated by : CHARISMA ZAMUDIO MD This examination was interpreted and the report reviewed and electronically signed by: CHARISMA ZAMUDIO MD on Apr 26 2023 4:50PM EST [id number] Normal [facility] Semen Analysis Post Vason SEMEN POST VAS PRESENT Normal [facility] Comment on above: Order Comment: POST VASECTOMY REVERSAL SPECIMEN Result Comment: Pa thologist comment addedCYTOSPIN PREPARATION USED FOR CONCENTRATIONOF SPECIMEN PRIOR TO STAINING AND EXAMINATIONDegenerated sperms are notedOrganisms consistent with bacteria are also notedJarred Benedict M.D. 05/23/18This case was reviewed with Dr. Amezquita who concurs with thekristen diagnosis.Pathologist comment added AMENDED REPORT 05/23/18 1002 SEMEN POST VAS previously reported as: PRESENTCYTOSPIN PREPARATION USED FOR CONCENTRATIONOF SPECIMEN PRIOR TO STAINING AND EXAMINATION Performed By: #### L 200.1000 ####[facility] [id number] [place], [address] Encounters Encounter Date Encounter Type Care Provider Facility Start: 04-19-2025 ambulatory DERRICK ENAMORADO Facilit y:JIAN Start: 04-12-2025 End: 04-12-2025 ambulatory KAROL ROLON APRN-TERRANCE Facility:[id number] Start: 04-12-2025 End: 04-12-2025 Patient encounter procedure KAROL ROLON APRN-ORTHOTICS TECHNICIAN [facility] Start: 03-16-2025 ambulatory SARPREET FEI Facilit y:[facility] Start: 03-15-2025 ambulatory SARPREET FEI Facilit y:[facility] Start: 12-09-2024 End: 12-09-2024 ambulatory KAROL SHEEHANT SCHOOL DIRECTOR-ORTHOTICS TECHNICIAN Facility:[id number] Start: 12-01-2024 ambulatory SARPREET FEI Facilit y:[facility] Start: 10-28-2024 End: 10-28-2024 ambulatory KAROL SHEEHANT SCHOOL DIRECTOR-ORTHOTICS TECHNICIAN Facility:[id number] Start: 10-28-2024 ambulatory SARPREET FEI Facilit y:[facility] Start: 07-20-2024 End: 07-20-2024 ambulatory SARPREET FEI Facility:[id number] Start: 06-01-2024 End: 06-01-2024 ambulatory SARPREET FEI Facility:[facility] Start: 09-02-2023 End: 09-02-2023 ambulatory [facility] Start: 04-29-2023 End: 04-30-2023 ambulatory TENISHA CEVALLOS ORTHOTICS TECHNICIAN Facility:[facility] Start: 04-26-2023 Telephone encounter Aurelia clark SCHOOL DIRECTOR.ORTHOTICS TECHNICIAN Work Phone: [facility] Comment on above: Results Start: 04-25-2023 End: 04-25-2023 ambulatory JOHNATHAN SIMPSON Facility:[facility] Start: 09-10-2022 End: 09-11-2022 ambulatory LEWIS GUALLPA ORTHOTICS TECHNICIAN Facility:[id number] Start: 08-15-2022 ambulatory SARPREET FEI Facilit y:[facility] Start: 08-15-2022 End: 08-16-2022 ambulatory LEWIS A RAMU ORTHOTICS TECHNICIAN Facility:[id number] Start: 08-14-2022 End: 08-15-2022 ambulatory LEWIS A RAMU ORTHOTICS TECHNICIAN Facility:[facility] Start: 09-05-2018 Patient encounter procedure Thomas Patterson Facility:[facility] Start: 05-21-2018 Patient encounter procedure AKHIL HASTINGS Facility:[facility] Start: 05-20-2014 Patient encounter status Aurelia Davidson SCHOOL DIRECTOR.ORTHOTICS TECHNICIAN Work Phone: [facility] Work Phone: Procedures Date Procedure Procedure Detail Performing Clinician Start: 09-02-2023 AMB REFERRAL TO PHYS ICAL THERAPY JOI MOYA Start: 05-20-2014 Lipid 1996 panel - S cindy or Plasma Aurelia Davidson SCHOOL DIRECTOR.ORTHOTICS TECHNICIAN Work Phone: cyst on tailbone KAROL Aguilera SCHOOL DIRECTOR-ORTHOTICS TECHNICIAN Tonsillectomy & adenoidectomy age 14/> KAROL ROLON SCHOOL DIRECTOR-ORTHOTICS TECHNICIAN [place] / Teeth Extractions J ZUHAIR ОЛЬГА SCHOOL DIRECTOR-ORTHOTICS TECHNICIAN Plan of Treatment Date Care Activity Detail Author Start: 03-08-2023 Covid-19 Vaccine () Covid-19 Vaccine () [facility] Start: 03-08-2023 Influenza vaccination Influenza Vacc ine (#1) [facility] Start: 07-08-2022 Depression Assessment Depression Ass essment [facility] Start: 05-20-2019 Lipid 1996 panel - S cindy or Plasma Lipid Screening [facility] Start: 04-22-2012 Urine microalbumin profile DTa P,Tdap,Td Vaccine (1 - Tdap) [facility] Start: 02-28-2000 Hepatitis C Screening Hepatitis C Sc sukh [facility] Start: 02-28-2000 HIV Screening HIV Screening [facility] Start: 1980 Hepatitis B Vaccine (1 of 3 - 3-dose series) Hepatitis B Vaccine (1 of 3 - 3-dose series) [facility] Immunizations Immunization Date Immunization Notes Care Provider Fa hina 12-15-2020 SARS-CoV-2 (COVID-19 ) mRNA BNT-162b2 vax KAROL ROLON SCHOOL DIRECTOR-ORTHOTICS TECHNICIAN Office [facility] 11-24-2020 SARS-CoV-2 (COVID-19 ) mRNA BNT-162b2 vax KAROL ROLON SCHOOL DIRECTOR-ORTHOTICS TECHNICIAN Office [facility] 05-02-2015 influenza, injectabl e, quadrivalent, contains preservative Aurelia Davidson SCHOOL DIRECTOR.ORTHOTICS TECHNICIAN Work Phone: [facility] Work Phone: 05-02-2015 influenza, injectabl e, quadrivalent, preservative free KAROL ROLON SCHOOL DIRECTOR-ORTHOTICS TECHNICIAN Office [facility] 05-02-2015 influenza virus vaccine, unspecified formulation Aureliasami Davidson SCHOOL DIRECTOR.ORTHOTICS TECHNICIAN Work Phone: [facility] 05-20-2014 influenza, injectabl e, quadrivalent, preservative free KAROL ROLON SCHOOL DIRECTOR-ORTHOTICS TECHNICIAN Office [facility] 05-20-2014 influenza, seasonal, injectable Aurelia Davidson SCHOOL DIRECTOR.ORTHOTICS TECHNICIAN Work Phone: [facility] 04-21-2012 tetanus and diphther ia toxoids, adsorbed, preservative free, for adult use (2 Lf of tetanus toxoid and 2 Lf of diphtheria toxoid) Aurelia Davidson SCHOOL DIRECTOR.ORTHOTICS TECHNICIAN Work Phone: [facility] Payers Date Payer Category Payer Self-pay 2008 Unknown 2008 Unknown [id number] 2008 Unknown [id number] 1982 Unknown [id number] 2.16.84 0.1.223841.3.579.2.717 1982 Unknown [id number] 2.16.8 40.1.017519.3.579.2.159 1982 Unknown [id number] 2.16.8 40.1.724781.3.579.2.159 1982 Unknown [id number] 2.16.8 40.1.715868.3.579.2.159 1982 Unknown [id number] 2.16.8 40.1.410913.3.579.2.159 1982 Unknown [id number] 2.16.8 40.1.235618.3.579.2.159 1982 Unknown [id number] 2.16.8 40.1.834700.3.579.2.159 1982 Unknown [id number] 2.16.84 0.1.777405.3.579.2.1243 1982 Unknown [id number] 2.16.8 40.1.962616.3.579.2.159 1982 Unknown [id number] 2.16.8 40.1.119263.3.579.2.159 1982 Unknown [id number] 2.16.8 40.1.015021.3.579.2.159 1982 Unknown [id number] 2.16.8 40.1.147271.3.579.2.159 1982 Unknown [id number] 2.16.8 40.1.837919.3.579.2.159 1982 Unknown [id number] 2.16.8 40.1.758518.3.579.2.159 1982 Unknown [id number] 2.16.8 40.1.656784.3.579.2.159 1982 Unknown [id number] 2.16.8 40.1.242836.3.579.2.159 1982 Unknown [id number] 2.16.8 40.1.684937.3.579.2.159 1982 Unknown [id number] 2.16.8 40.1.730593.3.579.2.159 1982 Unknown [id number] 2.16.8 40.1.921191.3.579.2.159 Unknown [id number] 2.16.8 40.1.526660.3.579.2.462 Social History Date Type Detail Facility [facility]: [facility]23 [facility] End: 08-19-2014 History of tobacco use Current smoker [facility] End: 08-19-2014 History of tobacco use Cigarette Smoker [facility] Start: 04-25-2023 Cigarettes smoked current (pack per day) - Reported 0.3 [facility] Start: 04-25-2023 Alcohol intake Current drinke r of alcohol (finding) [facility] Start: 04-25-2023 Tobacco use panel [facility]je[facility] Start: 09-16-2014 Alcohol Comment socially Malick sneed [facility] Start: 1980 Sex Assigned At Not on file [facility] Tobacco Electronic Cigarette [facility] Tobacco smoking status [facility] Sex Assigned At Male [facility] Start: 06-18-2018 Sex Male (finding) [facility] Note 04-26-2023 Telephone Encounter - Yolanda Segal MA - 04/26/2023 6:16 PM EDTTelephone Encounter - Aurelia Davidson APRN.CNP - 04/26/2023 4:57 PM EDT Note Date & Type Note Facility 04-26-2023 Miscellaneous Notes Formattin g of this note might be different from the original. Patient notified of results, verbalized understanding of instructions given. Yolanda Segal MA Xray knee negative. Please continue treatment plan discussed at time of exam. Follow up with PCP and or ortho. documented in this encounter [facility] Progress note 04-25-2023 Note Date & Type Note Facility 04-25-2023 Note HNO ID: [id number] Author: Araceli Daniels RT(R) Service: Radiology Author Type: Technologist Type: Progress Notes Filed: 04/25/2023 12:05 PM Note Text: Radiology Service Progress Note PATIENT NAME: Lily Ramos Jr. DATE OF SERVICE: April 25, 2023 TIME: 11:52 AM PATIENT IDENTITY VERIFICATION COMPLETED USING TWO (2) IDENTIFIERS: Name and Date of confirmed by patient verbally. FALL SCREENING: Has the patient had 2 falls in the last year or 1 fall with injury or currently using an Ambulatory Assistive Device (Walker, Cane, Wheelchair, Crutches, etc.)? No PATIENT GENDER DATA: Male PATIENT RELEVANT IMPLANT DATA REVIEWED: Not Applicable RADIOLOGY DEPARTMENT: General X-ray: Exam(s) Completed: Lower Extremity X-Ray(s): Knee, AP / Lat / Tunne / Merchant Right and Wt. Bearing PERIPHERAL IV DATA: Not applicable SIGNED BY: RT Monet(R) April 25, 2023 11:[address] [facility] Progress note 04-25-2023 Note Date & Type Note Facility 04-25-2023 Note HNO ID: [id number] Author: Johnathan Simpson MD Service: ? Author Type: Physician Type: Progress Notes Filed: 04/25/2023 11:52 AM Note Text: Patient presents with: Knee Pain: Right knee pain x 1 week HPI: Right knee pain: Duration: worsening over the last few weeks. Has had similar issue after injury (landed on feet falling off a ladder) a few years ago. Location: medial right knee to the anterior upper tibia Character: tight, band-like Radiation: No. Aggravating: bending, standing, walking, and kneeling Relieving: Pain relievers: Motrin and Tylenol Associated: swelling, popping Pertinent negatives: Denies redness, numbness, locking, giving out PAST MEDICAL HISTORY Diagnosis Date Anxiety and depression Varicose veins of both lower extremities PAST SURGICAL HISTORY Procedure Laterality Date PAST SURGICAL HISTORY OF pylonidal cyst x2 TONSILLECTOMY AND ADENOIDECTOMY HX MEDICATIONS: sertraline (ZOLOFT) 50 mg tablet ALLERGIES: ALLERGIES No Known Allergies VITALS: BP 122/90 Pulse 66 Temp 36.1 ?C (97 ?F) Resp 21 Wt (!) 154 kg (339 lb 9.6 oz) SpO2 98% BMI 44.80 kg/m? PE: Pleasant, in no acute distress. KNEE: right compared to left. No erythema or deformity. Small effusion medial to the patellar tendon. Bilateral varicose veins. FROM without pain. No crepitus. Medial anterior joint line tenderness. Non-tender tibial tuberosity and pes-anserine. Stable to varus and valgus strain. Negative anterior drawer test. Negative posterior drawer test. ASSESSMENT/PLAN: 1. Acute pain of right knee - ICD9: 719.46, ICD10: M25.561 Joint effusion with otherwise benign exam. Seems to have joint inflammation; possible medial meniscus issue. - XR KNEE GENERAL 4V AP BOTH/PA BOTH/LAT/MERC RIGHT - will have performed at [facility]. - PREDNISONE 10 MG TABLET taper. Avoid NSAID's while on steroid treatment (Aleve, Motrin, Advil, ibuprofen, or naproxen). May take acetaminophen (tylenol) as needed for pain relief. Follow up with ortho if not improving with rest, ice after activity, and anti-inflammatory. Johnathan Simpson MD [facility] course Narrative Note Date & Type Note Facility Hospital course Narrative No data available for this section [facility] Hospital Discharge instructions Note Date & Type Note Facility Hospital Discharge instructions No data available for this section [facility] Summary Purpose Family History No Family History Records FoundNo Family History Records FoundNo Family History Records FoundNo Family History Records FoundNo Family History Records Found No data available for this section No Family History Records Found Advance Directives No Advanced Directives Records FoundNo Advanced Directives Records FoundNo Advanced Directives Records FoundNo Advanced Directives Records FoundNo Advanced Directives Records FoundNo Advanced Directives Records Found Additional Source Comments (unrecognized sect ion and content) No Status Records FoundNo Status Records FoundNo Status Records FoundNo Status Records FoundNo Status Records FoundNo Status Records Found INFORMATION SOURCE (unrecogn ized section and content) DATE CREATED AUTHOR 06/16/2018 [facility] DATE CREATED AUTHOR AUTHOR'S ORGANIZ ATION 09/07/2018 [facility] DATE CREATED AUTHOR AUTHOR'S ORGANIZ ATION 04/27/[address] [facility] DATE CREATED AUTHOR AUTHOR'S ORGANIZ ATION 04/29/2023 [facility] DATE CREATED AUTHOR AUTHOR'S ORGANIZ ATION 02/07/2024 [facility] DATE CREATED AUTHOR AUTHOR'S ORGANIZ ATION 04/20/2025 [facility] Source Comments (unrecognize d section and content) In the event this informatio n is protected by the Federal Confidentiality of Alcohol and Drug Abuse Patient Records regulations: The Federal rules restrict any use of the information to criminally investigate or prosecute any alcohol or drug abuse patient.[facility] Reason for Visit (unrecogniz ed section and content) Reason Comments Results Patient Care team informatio n (unrecognized section and content) Care Team Personnel Name: FEI DESHPANDE-DERRICK LUIS Position: APPPhysician - Primary Care Member Role: Primary Care Physician Address: [address] [place] [address] Telecom: Care Team Related Persons Name: CECILIA RAMOS Name: KAROL RAMOS FOR RECORDS PERTAINING TO PATIENTS WHO ARE OR HAVE BEEN ENROLLED IN A CHEMICAL DEPENDENCY/SUBSTANCEABUSE PROGRAM, SOME INFORMATION MAY BE OMITTED. This clinical summary was aggregated from multiple sources. Caution should be exercised in using it in the provision of clinical care. This summary normalizes information from multiple sources, and as a consequence, information in this document may materially change the coding, format and clinical context of patient data. In addition, data may be omitted in some cases. CLINICAL DECISIONS SHOULD BE BASED ON THE PRIMARY CLINICAL RECORDS. [facility]. provides no warranty or guarantee of the accuracy or completeness of information in this document.
[2025-07-06 07:16] VITALS: BP 126/75; PULSE 90; RESP 16; TEMP 37.1; O2SAT 95
[2025-07-06 08:06] VITALS: BP 102/77; PULSE 89; RESP 17; TEMP 37.2; O2SAT 94
[2025-07-06 09:23] VITALS: BP 132/66; PULSE 78; RESP 16; TEMP 37.1; O2SAT 99
== END 2025-07-06 09:24 | disposition home or self-care (01) ==
PROVIDERS: Emergency Provider Emergency Medicine; Visit Provider Emergency Medicine
DX: J11.1 Influenza due to unidentified influenza virus with other respiratory manifestations (principal); B34.9 Viral infection, unspecified; E86.0 Dehydration; Z87.891 Personal history of nicotine dependence
CPT/HCPCS: 87631; 96361; 96374; 96375; 99283; J2405

== ENCOUNTER 2025-07-07 13:16 | Emergency (ER) | payer BC, SELFPAY ==
[2025-07-07 13:18] VITALS: BP 127/70; PULSE 100; PULSE 101; RESP 17; TEMP 37.7; O2SAT 95; BMI 35.8
[2025-07-07 13:24] VITALS: BP 127/70; PULSE 101; RESP 17; TEMP 37.7; O2SAT 95
[2025-07-07] MEDS: 0.9% Normal Saline (1000mL) 1,000 ML 999 ML IV (14:17)
--- OUTSIDE RECORDS SUMMARY | 2025-07-07 14:24 | XMS RPT_ITS | CCD ---
Author Organization [facility] Care Team Providers Care Women Nurse Name Role Phone AKHIL HASTINGS Unavailable Unavailable [...] Unavailable NIRMALA PAGAN Referring Unavailable [facility] Primary Care Physician FEI, SARPREET Primary Care Unavailable FEI, SARPREET Primary Care Unavailable FEI, SARPREET Primary Care Unavailable FEI, SARPREET Primary Care Unavailable ROLON CELL CHANGER-ENGRAVERKAROL Referring Unavailab le FEI, SARPREET Primary Care Unavailable ROLON CELL CHANGER-ENGRAVERKAROL Referring Unavailab le FEI, SARPREET Primary Care Unavailable ROLON CELL CHANGER-ENGRAVERKAROL Referring Unavailab le FEI, SARPREET Primary Care Unavailable FEI, SARPREET Primary Care Unavailable FEI, SARPREET Primary Care Unavailable DEON AMADOR CNP Attending Unavailable FEI, SARPREET Primary Care Unavailable FEI, SARPREET Primary Care Unavailable Allergies Allergy Classification Reported Allergen(s) Allergy Type Date of Onset Reaction(s) Facility (1 source) ALLERGIES NOT ON FILE; Translations: [ALLERGIES NOT ON FILE] Propensity to adverse reactions (disorder) [facility] 2 Repository Medications Current Medications Medication Drug [...] 30 tabs, Date: 03/16/25 9:53:00 AM EDT, [facility] 1448, 1 tabs ORAL QPM Start Date: 03/16/25 Status: Ordered Medication Dispense Status: Completed Quantity: 30.0 Unit: tabs Total Allowed Fills: 2 Fills Dispensed: 0 Start: 10-29-2024 End: 11-28-2024 take 1 tablet by mouth once Xarelto Starter Pack 15 mg -20 mg oral tablet 1 packets, ORAL, ONCE, as directed on package labeling; Lot # [id number] Exp 09/01, 1 packets, Date: 10/29/24 12:14:00 [...] 07-20-2024 Baso Count 0.04 x1000 Normal 0.00-0.20 [facility] Comment on above: Order Comment: FX TO [phone] Performed By: #### 1 66515, 9992085, 469643, 7319072, 225862 #### [facility] [address] [place] [address] 87332 Geospatial Scientist: Sigifredo Pace MD Basos % 0.6 % Normal [facility] Comment on above: Order Comment: FX TO [phone] Performed By: #### 1 02233, 1302834, 979988, 3330113, 753264 #### [facility] [address] [place] [address] 82567 Geospatial Scientist: Sigifredo Pace MD Eos Count 0.06 x1000 Normal 0.00-0.50 [facility] Comment on above: Order Comment: FX TO [phone] Performed By: #### 1 22801, 7946218, 147439, 0129014, 476630 #### [facility] [address] [place] [address] 69472 Geospatial Scientist: Sigifredo Pace MD Eosinophils/100 WBC (Bld) 1.0 % Normal [facility] Comment on above: Order Comment: FX TO [phone] Performed By: #### 1 87339, 6933696, 823211, 6126284, 447165 #### [facility] [address] [place] [address] 75428 Geospatial Scientist: Sigifredo Pace MD Lymph Count 1.84 x1000 Normal 1.20-4.80 [facility] Comment on above: Order Comment: FX TO [phone] Performed By: #### 1 88217, 7745448, 237428, 7830350, 708372 #### [facility] [address] [place] [address] 73271 Geospatial Scientist: Sigifredo Pace MD Lymphocytes/100 WBC (Bld) 29.0 % Normal [facility] Comment on above: Order Comment: FX TO [phone] Performed By: #### 1 86458, 5932465, 001358, 6924458, 703136 #### [facility] [address] [place] [address] 82302 Geospatial Scientist: Sigifredo Pace MD Chaffee Count 0.35 x1000 Normal 0.10-1.00 [facility] Comment on above: Order Comment: FX TO [phone] Performed By: #### 1 51726, 8174785, 833858, 5285646, 892893 #### [facility] [address] [place] [address] 53454 Geospatial Scientist: Sigifredo Pace MD Monocytes/100 WBC (Bld) 5.5 % Normal [facility] Comment on above: Order Comment: FX TO [phone] Performed By: #### 1 25388, 5469596, 702560, 6079536, 371393 #### [facility] [address] [place] [address] 34213 Geospatial Scientist: Sigifredo Pace MD Neutrophil Count (ANC) 4.05 x1000 Normal 1.40-8.80 [facility] Comment on above: Order Comment: FX TO [phone] Performed By: #### 1 09797, 0147295, 775066, 1435276, 913376 #### [facility] [address] [place] [address] 25495 Geospatial Scientist: Sigifredo Pace MD Neutrophils/100 WBC (Bld) 63.9 % Normal [facility] Comment on above: Order Comment: FX TO [phone] Performed By: #### 1 69862, 3187835, 210343, 7068458, 817385 #### [facility] [address] [place] [address] 59702 Geospatial Scientist: Sigifredo Pace MD COMPMETAon 07-20-2024 Albumin [Mass/Vol] 3.7 g/dL Normal 3.4-5.0 [facility] Comment on above: Order Comment: FX TO [phone] Performed By: #### 1 24595, 6717303, 037812, 0508560, 815778 #### [facility] [address] [place] [address] 03708 Geospatial Scientist: Sigifredo Pace MD Albumin/Globulin [Mass ratio] 1.2 {ratio} Normal [facility] Comment on above: Order Comment: FX TO [phone] Performed By: #### 1 37812, 2928213, 616713, 9659615, 157049 #### [facility] [address] [place] [address] 70664 Geospatial Scientist: Sigifredo Pace MD Alk Phos 73 unit/L Normal 45-117 [facility] Comment on above: Order Comment: FX TO [phone] Performed By: #### 1 97698, 9497454, 402085, 2384365, 616261 #### [facility] [address] [place] [address] 35598 Geospatial Scientist: Sigifredo Pace MD Bilirubin [Mass/Vol] 0.40 mg/dL Normal 0.30-1.20 [facility] Comment on above: Order Comment: FX TO [phone] Result Comment: Use of this assay is not recommended for patients undergoing treatment with eltrombopag due to the potential for falsely elevated results. Performed By: #### 1 64195, 4520580, 304460, 4277019, 175250 #### [facility] [address] [place] [address] 46061 Geospatial Scientist: Sigifredo Pace MD Calcium [Mass/Vol] 9.4 mg/dL Normal 8.7-10.4 [facility] Comment on above: Order Comment: FX TO [phone] Performed By: #### 1 31522, 5516273, 621807, 1300658, 196329 #### [facility] [address] [place] [address] 27595 Geospatial Scientist: Sigifredo Pace MD Chloride [Moles/Vol] 105 mmol/L Normal 98-107 [facility] Comment on above: Order Comment: FX TO [phone] Performed By: #### 1 99644, 6617309, 320493, 3490314, 194311 #### [facility] [address] [place] [address] 01559 Geospatial Scientist: Sigifredo Pace MD CO2 [Moles/Vol] 31.0 mmol/L Normal 20.0-31.0 [facility] Comment on above: Order Comment: FX TO [phone] Performed By: #### 1 44492, 0039770, 235926, 6470288, 505905 #### [facility] [address] [place] [address] 71223 Geospatial Scientist: Sigifredo Pace MD Creatinine [Mass/Vol] 0.9 mg/dL Normal 0.6-1.1 [facility] Comment on above: Order Comment: FX TO [phone] Performed By: #### 1 21436, 2835072, 356489, 1227835, 727865 #### [facility] [address] [place] [address] 02137 Geospatial Scientist: Sigifredo Pace MD GFR AA >60 Normal [facility] Comment on above: Order Comment: FX TO [phone] Result Comment: Afri can Macedonian GFR Calc Medical judgement is necessary to [...] for drug dosing. Performed By: #### 1 00027, 5303997, 079399, 5189360, 666712 #### [facility] [address] [place] [address] 25761 Geospatial Scientist: Sigifredo Pace MD Globulin (S) [Mass/Vol] 3.1 g/dL Normal [facility] Comment on above: Order Comment: FX TO [phone] Performed By: #### 1 48436, 7687482, 414052, 9910890, 240968 #### [facility] [address] [place] [address] 71447 Geospatial Scientist: Sigifredo Pace MD Glomerular Filtration Rate >60 Normal [facility] Comment on above: Order Comment: FX TO [phone] Result Comment: Non- GFR Calc Medical judgement [...] for drug dosing. Performed By: #### 1 68757, 5399367, 211679, 4392577, 612625 #### [facility] [address] [place] [address] 84453 Geospatial Scientist: Sigifredo Pace MD Glucose [Mass/Vol] 85 mg/dL Normal 74-106 [facility] Comment on above: Order Comment: FX TO [phone] Performed By: #### 1 25819, 3221782, 409029, 7481616, 549230 #### [facility] [address] [place] [address] 16784 Geospatial Scientist: Sigifredo Pace MD GOT 14 unit/L Low 15-37 [facility] Comment on above: Order Comment: FX TO [phone] Performed By: #### 1 54453, 3973078, 962089, 5853022, 851232 #### [facility] [address] [place] [address] 13290 Geospatial Scientist: Sigifredo Pace MD GPT 12 unit/L Normal 10-49 [facility] Comment on above: Order Comment: FX TO [phone] Performed By: #### 1 38462, 5479200, 592063, 4965250, 176656 #### [facility] [address] [place] [address] 52878 Geospatial Scientist: Sigifredo Pace MD Osmolality [Osmolality] 283 mosm/kg Normal 275-295 [facility] Comment on above: Order Comment: FX TO [phone] Performed By: #### 1 31705, 9796273, 217855, 9090421, 591213 #### [facility] [address] [place] [address] 33177 Geospatial Scientist: Sigifredo Pace MD Potassium [Moles/Vol] 4.2 mmol/L Normal 3.5-5.1 [facility] Comment on above: Order Comment: FX TO [phone] Result Comment: Spec imen slightly hemolyzed. Results may be affected. Performed By: #### 1 32765, 0000200, 641772, 2610073, 468817 #### [facility] [address] [place] [address] 54666 Geospatial Scientist: Sigifredo Pace MD Protein [Mass/Vol] 6.8 g/dL Normal 5.7-8.2 [facility] Comment on above: Order Comment: FX TO [phone] Result Comment: Tota l Protein results may be increased in patients receiving dextran as a blood volume adult neuropsychologist Performed By: #### 1 91828, 7323633, 873003, 7230748, 950288 #### [facility] [address] [place] [address] 85556 Geospatial Scientist: Sigifredo Pace MD Sodium [Moles/Vol] 142 mmol/L Normal 135-145 [facility] Comment on above: Order Comment: FX TO [phone] Performed By: #### 1 70875, 4837916, 211081, 9725364, 610476 #### [facility] [address] [place] [address] 25187 Geospatial Scientist: Sigifredo Pace MD Urea nitrogen [Mass/Vol] 13 mg/dL Normal 9-23 [facility] Comment on above: Order Comment: FX TO [phone] Result Comment: - Ve nipuncture should occur prior to N-Acetyl Cysteine (NAC) or Metamizole (Sulpyrine) administration due to the potential for falsely depressed results. - Blood samples from some patients with monoclonal gammopathies may produce falsely elevated results Performed By: #### 1 66004, 9222751, 933254, 3930147, 886397 #### [facility] [address] [place] [address] 26556 Geospatial Scientist: Sigifredo Pace MD Urea nitrogen/Creatinin e [Mass ratio] 14.4 mg/mg Normal [facility] Comment on above: Order Comment: FX TO [phone] Performed By: #### 1 07216, 5625319, 634583, 7300248, 437368 #### [facility] [address] [place] [address] 59291 Geospatial Scientist: Sigifredo Pace MD HEMOon 07-20-2024 DIFF? No Normal [facility] Comment on above: Order Comment: FX TO [phone] Performed By: #### 1 86568, 4520061, 020069, 1687061, 335839 #### [facility] [address] [place] [address] 02749 Geospatial Scientist: Sigifredo Pace MD Erythrocyte distribution width (RBC) [Ratio] 13.7 % Normal 11.5-14.5 [facility] Comment on above: Order Comment: FX TO [phone] Performed By: #### 1 50166, 1995762, 062556, 8241133, 896195 #### [facility] [address] [place] [address] 60673 Geospatial Scientist: Sigifredo Pace MD Hematocrit (Bld) [Volume fraction] 42.2 % Normal 41.0-52.0 [facility] Comment on above: Order Comment: FX TO [phone] Performed By: #### 1 87298, 5201350, 392968, 5297235, 656852 #### [facility] [address] [place] [address] 68702 Geospatial Scientist: Sigifredo Pace MD Hemoglobin (Bld) [Mass/Vol] 14.0 g/dL Normal 13.5-17.5 [facility] Comment on above: Order Comment: FX TO [phone] Performed By: #### 1 14218, 9748398, 411296, 6741532, 688859 #### [facility] [address] [place] [address] 37532 Geospatial Scientist: Sigifredo Pace MD Instr WBC 6.3 Normal [facility] Comment on above: Order Comment: FX TO [phone] Performed By: #### 1 10676, 1889617, 453970, 5121009, 104775 #### [facility] [address] [place] [address] 32701 Geospatial Scientist: Sigifredo Pace MD MCH (RBC) [Entitic mass] 28.2 pg Normal 27.0-34.0 [facility] Comment on above: Order Comment: FX TO [phone] Performed By: #### 1 72571, 5917981, 314625, 3207820, 024351 #### [facility] [address] [place] [address] 85620 Geospatial Scientist: Sigifredo Pace MD MCHC (RBC) [Mass/Vol] 33.2 g/dL Normal 32.0-37.0 [facility] Comment on above: Order Comment: FX TO [phone] Performed By: #### 1 83204, 7036508, 011814, 3275464, 794790 #### [facility] [address] [place] [address] 30713 Geospatial Scientist: Sigifredo Pace MD MCV (RBC) [Entitic vol] 84.9 fL Normal 80.0-100.0 [facility] Comment on above: Order Comment: FX TO [phone] Performed By: #### 1 48724, 8819157, 414307, 9782510, 913176 #### [facility] [address] [place] [address] 64757 Geospatial Scientist: Sigifredo Pace MD Nucleated RBC 0 /100WBC Normal [facility] Comment on above: Order Comment: FX TO [phone] Performed By: #### 1 92845, 8475711, 899496, 5014778, 458226 #### [facility] [address] [place] [address] 65766 Geospatial Scientist: Sigifredo Pace MD Platelet 232 x10 Normal 150-450 [facility] Comment on above: Order Comment: FX TO [phone] Performed By: #### 1 94907, 1492179, 258731, 2763147, 861900 #### [facility] [address] [place] [address] 65147 Geospatial Scientist: Sigifredo Pace MD Platelet mean volume (Bld) [Entitic vol] 10.4 fL Normal 7.4-10.4 [facility] Comment on above: Order Comment: FX TO [phone] Performed By: #### 1 06891, 1000074, 176872, 8782247, 517962 #### [facility] [address] [place] [address] 62840 Geospatial Scientist: Sigifredo Pace MD RBC 4.97 x10 Normal 4.70-6.10 [facility] Comment on above: Order Comment: FX TO [phone] Result Comment: Note : RBC morphology is normal unless otherwise stated. Evaluation performed only if differential is requested. Performed By: #### 1 81556, 3346102, 628709, 6202469, 003356 #### [facility] [address] [place] [address] 46713 Geospatial Scientist: Sigifredo Pace MD WBC 6.3 x10 Normal 4.5-11.0 [facility] Comment on above: Order Comment: FX TO [phone] Performed By: #### 1 35933, 1521952, 026575, 9568473, 073783 #### [facility] [address] [place] [address] [id number] Geospatial Scientist: Sigifredo Pace MD HGB A1Con 07-20-2024 HbA1c (Bld) [Mass fraction] 5.0 % Normal [facility] Comment on above: Order Comment: FX TO [phone] Result Comment: Refe rence Range: Diabetic Greater than or equal to 6.5 % Prediabetic 5.7?6.4 % Normal Less than 5.7 % Performed By: #### 1 19266 #### [facility] [address] [place] [address] [phone] Geospatial Scientist: Sigifredo Pace MD LIPID PNLon 07-20-2024 Calculated LDL Cholesterol 111 mg/dL Normal 60-130 [facility] Comment on above: Order Comment: FX TO [phone] Result Comment: <100 mg/dl Optimal 100-129 mg/dl Near Optimal 130-159 mg/dl Borderline High 160-189 mg/dl High >=190 mg/dl Very High Performed By: #### 1 49051, 5365010, 589462, 4137980, 308654 #### [facility] [address] [place] [address] 44130 Geospatial Scientist: Sigifredo Pace MD Cholesterol [Mass/Vol] 185 mg/dL Normal 100-200 [facility] Comment on above: Order Comment: FX TO [phone] Result Comment: Myriam puncture should occur prior to N-Acetyl Cysteine (NAC) or Metamizole (Sulpyrine) administration due to the potential for falsely depressed results. Performed By: #### 1 37952, 9207645, 010504, 8620862, 595984 #### [facility] [address] [place] [address] 44130 Geospatial Scientist: Sigifredo Pace MD Cholesterol in HDL [Mass/Vol] 48 mg/dL Normal 40-60 [facility] Comment on above: Order Comment: FX TO [phone] Result Comment: Dire ct HDL Venipuncture should occur prior to metamizole (sulpyrine) administration due to the potential for falsely depressed results Performed By: #### 1 19841, 2993490, 799473, 1901766, 765183 #### [facility] [address] [place] [address] Geospatial Scientist: Sigifredo Pace MD Total Chol/HDL Chol Ratio 3.9 Normal [facility] Comment on above: Order Comment: FX TO [phone] Performed By: #### 1 64165, 1853278, 578339, 5306799, 914815 #### [facility] [address] [place] [address] 07851 Geospatial Scientist: Sigifredo Pace MD Triglyceride [Mass/Vol] 132 mg/dL Normal 30-150 [facility] Comment on above: Order Comment: FX TO [phone] Result Comment: - Ve nipuncture should occur prior to N-Acetyl Cysteine (NAC) or Metamizole (Sulpyrine) administration due to the potential for falsely depressed results - Use of this assay is not recommended for patients being treated with etamsylate because it causes falsely decreased results Performed By: #### 1 50819, 1552990, 201598, 8749110, 472147 #### [facility] [address] [place] [address] [phone] Geospatial Scientist: Sigifredo Pace MD Registration Documents-Other on 07-20-2024 Registration Documents-Other Normal [facility] TSHon 07-20-2024 TSH Qn 1.15 m[IU]/L Normal 0.55-4.78 [facility] Comment on above: Order Comment: FX TO [phone] Result Comment: - Do not use samples [...] Reference: [email or web address] (04/2023) Performed By: #### 1 54901, 3009904, 725002, 0705125, 685838 #### [facility] [address] [id number] Geospatial Scientist: Sigifredo Pace MD [facility] Physician Progress Noteon 06-01-2024 [facility] Physician Progress Note LILY RAMOS :1980 Registration [...] at least every 6 months 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 Normal [facility] Ambulatory Clinical Summary n 06-01-2024 Ambulatory Clinical Summary LILY RAMOS :1980 [facility]:[id number] Registration Date:06/01/2024 Ambulatory Visit Instructions Your Diagnosis Status post endovenous radiofrequency ablation (RFA) of saphenous vein Your Care Team Attending Physician - Vascular , [facility] Primary Care Physician - FEI DESHPANDE-DERRICK LUIS Procedures Performed cyst on tailbone Tonsillectomy and Adenoidectomy. [place] / Teeth Extractions Discharge Vitals Temperature (Oral) [...] at least every 6 months Compression stores: [employer], [employer], any running or nursing uniform store Brand names: CEP (compression engineering products), [employer], [employer], [employer], [employer] carries their own brand in addition to [...] call to get immediate medical attention! Normal [facility] Comprehensive Intake - Texto n 06-01-2024 Comprehensive [...] in, 185 cm) Body Mass Index Measured Wallisian : 41.16 kg/m2 BSA Wallisian : 2.7 m2 Ashley Recinos RN - [...] Recinos RN - 06/01/2024 10:06 EST Normal [facility] 04-26-2023 [facility] Telephone ([facility]) -- LILY RAMSO JR. ([id number]) 1980 M Date Time Provider Department 04/26/23 AURELIA DAVIDSON [facility] During your visit today, we recorded the following information about you: Aurelia Davidson APRN.[facility] 04/26/2023 4:57 PM Signed Xray knee negative. [...] Status:Closed by YOLANDA SEGAL on 04/26/23 Normal [facility] CNOVon 04-25-2023 CNOV Office Visit ([facility] ) -- LILY RAMOS JR. ([id number]) 1980 M Date Time Provider Department 04/25/23 11:15 AM JOHNATHAN SIMPSON [facility] During your visit today, we recorded [...] BOTH/LAT/MERC RIGHT - will have performed at [facility]. - PREDNISONE 10 MG TABLET taper. Avoid [...] KNEE GENERAL 4V AP BOTH/PA BOTH/LAT/MERC RIGHT [[id number]] Order #: [id number] FUTURE predniSONE (DELTASONE) 10 mg tabletTake by [...] Encounter Status:Closed by JOHNATHAN SIMPSON on 04/25/23 [facility] XR KNEE 4V AP/PA BOTH+LAT/ME R [...] seen bilaterally. IMPRESSION: Unremarkable right knee x-ray. Client Insights Consultant: VINEET Transcribe Date/Time: Apr 26 2023 4:49P Dictated by : CHARISMA ZAMUDIO MD This examination was interpreted and the report reviewed and electronically signed by: CHARISMA ZAMUDIO MD on Apr 26 2023 4:50PM EST [id number] Normal [facility] Semen Analysis Post [employer] SEMEN POST VAS PRESENT Normal [facility] Comment on above: Order Comment: POST VASECTOMY [...] AND EXAMINATION Performed By: #### L 200.1000 ####[facility] [id number] [place], [address] Encounters Encounter Date Encounter Type Care Provider Facility Start: 04-19-2025 ambulatory DERRICK ENAMORADO Facilit y:JIAN Start: 04-12-2025 End: 04-12-2025 ambulatory KAROL ROLON APRN-TERRANCE Facility:[id number] Start: 04-12-2025 End: 04-12-2025 Patient encounter procedure KAROL ROLON APRN-ENGRAVER [facility] Start: 03-16-2025 ambulatory SARPREET FEI Facilit y:[facility] Start: 03-15-2025 ambulatory SARPREET FEI Facilit y:[facility] Start: 12-09-2024 End: 12-09-2024 ambulatory KAROL SHEEHANT CELL CHANGER-ENGRAVER Facility:[id number] Start: 12-01-2024 ambulatory SARPREET FEI Facilit y:[facility] Start: 10-28-2024 End: 10-28-2024 ambulatory KAROL SHEEHANT CELL CHANGER-ENGRAVER Facility:[id number] Start: 10-28-2024 ambulatory SARPREET FEI Facilit y:[facility] Start: 07-20-2024 End: 07-20-2024 ambulatory SARPREET FEI Facility:[id number] Start: 06-01-2024 End: 06-01-2024 ambulatory SARPREET FEI Facility:[facility] Start: 09-02-2023 End: 09-02-2023 ambulatory [facility] Start: 04-29-2023 End: 04-30-2023 ambulatory TENISHA CEVALLOS ENGRAVER Facility:[facility] Start: 04-26-2023 Telephone encounter Aurelia clark CELL CHANGER.ENGRAVER Work Phone: [facility] Comment on above: Results Start: 04-25-2023 End: 04-25-2023 ambulatory JOHNATHAN SIMPSON Facility:[facility] Start: 09-10-2022 End: 09-11-2022 ambulatory LEWIS GUALLPA ENGRAVER Facility:[facility] Start: 08-15-2022 ambulatory SARPREET FEI Facilit y:[facility] Start: 08-15-2022 End: 08-16-2022 ambulatory LEWIS A RAMU ENGRAVER Facility:[id number] Start: 08-14-2022 End: 08-15-2022 ambulatory ELWIS A RAMU ENGRAVER Facility:[facility] Start: 09-05-2018 Patient encounter procedure Thomas Patterson Facility:[facility] Start: 05-21-2018 Patient encounter procedure AKHIL HASTINGS Facility:[facility] Start: 05-20-2014 Patient encounter status Aurelia Davidson CELL CHANGER.ENGRAVER Work Phone: [facility] Work Phone: Procedures Date Procedure Procedure Detail Performing Clinician Start: 09-02-2023 AMB REFERRAL TO PHYS ICAL THERAPY JOI MOYA Start: 05-20-2014 Lipid 1996 panel - S cindy or Plasma Aurelia Davidson CELL CHANGER.ENGRAVER Work Phone: cyst on tailbone KAROL Aguilera CELL CHANGER-ENGRAVER Tonsillectomy & adenoidectomy age 14/> KAROL ROLON CELL CHANGER-ENGRAVER [place] / Teeth Extractions J ZUHAIR ОЛЬГА CELL CHANGER-ENGRAVER Plan of Treatment Date Care Activity Detail Author Start: 03-08-2023 Covid-19 Vaccine () Covid-19 Vaccine () [facility] Start: 03-08-2023 Influenza vaccination Influenza Vacc ine (#1) [facility] Start: 07-08-2022 Depression Assessment Depression Ass essment [facility] Start: 05-20-2019 Lipid 1996 panel - S cindy or Plasma Lipid Screening [facility] Start: 04-22-2012 Urine microalbumin profile DTa P,Tdap,Td Vaccine (1 - Tdap) [facility] Start: 02-28-2000 Hepatitis C Screening Hepatitis C Sc sukh [facility] Start: 02-28-2000 HIV Screening HIV Screening [facility] Start: 1982 Hepatitis B Vaccine (1 of 3 - 3-dose series) Hepatitis B Vaccine (1 of 3 - 3-dose series) [facility] Immunizations Immunization Date Immunization Notes Care Provider Fa hina 12-15-2020 SARS-CoV-2 (COVID-19 ) mRNA BNT-162b2 vax KAROL ROLON CELL CHANGER-ENGRAVER Office [facility] 11-24-2020 SARS-CoV-2 (COVID-19 ) mRNA BNT-162b2 vax KAROL ROLON CELL CHANGER-ENGRAVER Office [facility] 05-02-2015 influenza, injectabl e, quadrivalent, contains preservative Aurelia Davidson CELL CHANGER.ENGRAVER Work Phone: [facility] Work Phone: 05-02-2015 influenza, injectabl e, quadrivalent, preservative free KAROL ROLON CELL CHANGER-ENGRAVER Office [facility] 05-02-2015 influenza virus vaccine, unspecified formulation Aureliasami Davidson CELL CHANGER.ENGRAVER Work Phone: [facility] 05-20-2014 influenza, injectabl e, quadrivalent, preservative free KAROL ROLON CELL CHANGER-ENGRAVER Office [facility] 05-20-2014 influenza, seasonal, injectable Aurelia Davidson CELL CHANGER.ENGRAVER Work Phone: [facility] 04-21-2012 tetanus and diphther ia toxoids, adsorbed, preservative free, for adult use (2 Lf of tetanus toxoid and 2 Lf of diphtheria toxoid) Aurelia Davidson CELL CHANGER.ENGRAVER Work Phone: [facility] Payers Date Payer Category Payer Self-pay 2008 Unknown 2008 Unknown [id number] 2008 Unknown [id number] 1982 Unknown [id number] 2.16.84 [id number] 1982 Unknown [id number] 2.16.8 [id number] 1982 Unknown [id number] 2.16.8 40.1.982623.3.579.2.159 1982 Unknown [id number] 2.16.8 40.1.925764.3.579.2.159 1982 Unknown [id number] 2.16.8 40.1.786635.3.579.2.159 1982 Unknown [id number] 2.16.8 40.1.027102.3.579.2.159 1982 Unknown [id number] 2.16.8 40.1.590657.3.579.2.159 1982 Unknown [id number] 2.16.84 0.1.772531.3.579.2.1243 1982 Unknown [id number] 2.16.8 40.1.522605.3.579.2.159 1982 Unknown [id number] 2.16.8 40.1.091834.3.579.2.159 1982 Unknown [id number] 2.16.8 40.1.074422.3.579.2.159 1982 Unknown [id number] 2.16.8 40.1.726750.3.579.2.159 1982 Unknown [id number] 2.16.8 40.1.946729.3.579.2.159 1982 Unknown [id number] 2.16.8 40.1.900718.3.579.2.159 1982 Unknown [id number] 2.16.8 40.1.981237.3.579.2.159 1982 Unknown [id number] 2.16.8 40.1.791740.3.579.2.159 1982 Unknown [id number] 2.16.8 40.1.513798.3.579.2.159 1982 Unknown [id number] 2.16.8 40.1.051349.3.579.2.159 1982 Unknown [id number] 2.16.8 40.1.353350.3.579.2.159 Unknown [id number] 2.16.8 [id number] Social History Date Type Detail Facility Start: [facility]25-2023 [facility] End: 08-19-2014 History of tobacco use Current smoker [facility] End: 08-19-2014 History of tobacco use Cigarette Smoker [facility] Start: 04-25-2023 Cigarettes smoked current (pack per day) - Reported 0.3 [facility] Start: 04-25-2023 Alcohol intake Current drinke r of alcohol (finding) [facility] Start: 04-25-2023 Tobacco use panel Sanjeevberna willingham [facility] Start: 09-16-2014 Alcohol Comment socially Malick sneed [facility] Start: 1980 Sex Assigned At Not on file C [facility] Tobacco Electronic Cigarette [facility] Tobacco smoking status [facility] Sex Assigned At Male [facility] Start: 06-18-2018 Sex Male (finding) [facility] Note 04-26-2023 Telephone Encounter - Yolanda Segal [...] and or ortho. documented in this encounter [facility] Progress note 04-25-2023 Note Date & Type Note Facility 04-25-2023 Note HNO ID: [id number] Author: Araceli Daniels RT(R) Service: Radiology Author [...] RT Monet(R) April 25, 2023 11:52 AM [facility] Progress note 04-25-2023 Note Date & Type Note Facility 04-25-2023 Note HNO ID: [id number] Author: Johnathan Simpson MD Service: ? Author [...] BOTH/LAT/MERC RIGHT - will have performed at [facility]. - PREDNISONE 10 MG TABLET taper. Avoid NSAID's while on steroid treatment (Aleve, Motrin, Advil, ibuprofen, or naproxen). May take acetaminophen (tylenol) as needed for pain relief. Follow up with ortho if not improving with rest, ice after activity, and anti-inflammatory. Johnathan Simpson MD [facility] course Narrative Note Date & Type Note Facility Hospital course Narrative No data available for this section [facility] Hospital Discharge instructions Note Date & Type Note Facility Hospital Discharge instructions No data available for this section [facility] Summary Purpose Family History No Family History [...] section and content) DATE CREATED AUTHOR 06/16/2018 [facility] DATE CREATED AUTHOR AUTHOR'S ORGANIZ ATION 09/07/2018 [facility] DATE CREATED AUTHOR AUTHOR'S ORGANIZ ATION 04/27/2023 [facility] DATE CREATED AUTHOR AUTHOR'S ORGANIZ ATION 04/29/2023 [facility] DATE CREATED AUTHOR AUTHOR'S ORGANIZ ATION 02/07/2024 [facility] DATE CREATED AUTHOR AUTHOR'S ORGANIZ ATION 04/20/2025 [facility] Source Comments (unrecognize d section and content) In the event this informatio n is protected by the Federal Confidentiality of Alcohol and Drug Abuse Patient Records regulations: The Federal rules restrict any use of the information to criminally investigate or prosecute any alcohol or drug abuse patient.[facility] Reason for Visit (unrecogniz ed section and content) Reason Comments Results Patient Care team informatio n (unrecognized section and content) Care Team Personnel Name: FEI DESHPANDE-DERRICK LUIS Position: APPPhysician - Primary Care Member Role: Primary Care Physician Address: [address] [place] [address] Telecom: Care Team Related Persons Name: CECILIA [...] BE BASED ON THE PRIMARY CLINICAL RECORDS. [employer] [facility]. provides no warranty or guarantee of the accuracy or completeness of information in this document.
--- NOTE | 2025-07-07 14:30 | CT_ITS ---
PROCEDURE: BRAIN/HEAD WITHOUT CONTRAST 07/07/2025 REASON FOR EXAM: HEADACHE TECHNIQUE: Procedure Code: CTBR Modality: CT Procedure: BRAIN/HEAD WITHOUT CONTRAST Coronal and Sagittal reconstruction series were provided. One or more dose reduction techniques were used (e.g., Automated exposure control, adjustment of the mA and/or kV according to patient size, use of iterative reconstruction technique. RADIATION DOSE SUMMARY: CTDlvol: 44.99 mGy DLP: 880.47 mGycm COMPARISON: None. FINDINGS: Brain: Normal CSF Spaces: Normal Sinuses/Mastoids: Clear Bones: No acute bony abnormalities. CT/Brain/Head without Contrast IMPRESSION: Unremarkable CT head. No acute intracranial abnormalities. Reading Location: [id number]
[2025-07-07 14:52] LABS: Hematocrit 33.5 % (40-54); Hemoglobin 11.0 g/dL (13.0-16.5); Immature Granulocytes Count 0.080 X10^3/uL (0.0-0.0); Mean Corp Hgb Conc 32.8 g/dL (32-36); Mean Corpuscular Volume 84.0 fL (80-94); Mean Platelet Vol. 10.9 fl (6.2-12.0); NRBC Flagged by Analyzer 0 % (0-5); POSITIVE DIFFERENTIAL YES; Platelet Count 251 K/mm3 (150-450); RBC Distribution Width CV 13.2 % (11.6-14.6); RBC Distribution Width SD 40.8 fl (35.1-43.9); Red Blood Count 3.99 M/mm3 (4.6-6.2); White Blood Count 14.7 K/mm3 (4.4-11.0)
--- NOTE | 2025-07-07 14:55 | EX.ED.DYSGE1 ---
HPI History of Present Illness Chief Complaint: Cold Sx Narrative Narrative: Patient is a 45-year-old male who presents to the emergency department with chief complaint of whole body aches, not feeling well, fever and abnormal CT of his chest. Patient states that he started to become ill over the weekend. According to significant other at bedside they originally here was evaluated and sent home. He states that later that day he went to [facility] and had a workup performed there ultimately had a CT of the chest that showed a mass on his CT and they recommended following up in the outpatient setting. states that she brought him back here today because when he woke up he was confused and not acting his normal self and was concerned. Patient states he does have a headache denies any head injuries or trauma. PFSH PFSH Medical History no medical history Home Medications ?Medication ?Instructions ?Recorded ?Last Taken ?Type dupilumab 300 mg/2 mL subcutaneous mg subcut 07/06/25 Unknown History pen injector (Dupixent) ondansetron 4 mg disintegrating 4 mg PO TID PRN nausea and 07/06/25 Unknown Rx tablet vomiting #21 tabs prednisone 20 mg tablet 40 mg (2 x 20 mg) PO DAILY 5 days 07/06/25 Unknown Rx #10 tabs semaglutide (weight loss) 2.4 2.4 mg subcut QWEEK 07/06/25 Unknown History mg/0.75 mL subcutaneous pen injector (Wegovy) Allergy/AdvReac Type Severity Reaction Status Date / Time No Known Allergies Allergy Verified 07/07/25 13:23 Surgical History no surgical history Social History Smoking Status: Current every day smoker tobacco type: e-cigarettes ROS ROS ED ROS Narrative Constitutional: Complains of headache as noted above as well as fever Eyes: Denies double vision Cardiovascular: Denies chest pain Respiratory: Denies shortness of breath Abdomen: Denies any abdominal pain nausea vomit diarrhea : Denies any urinary symptoms Neurological: Denies any numbness, weakness, tingling Musculoskeletal: Denies back pain Skin: Denies any rashes or lesions EXAM Physical Exam Narrative Exam Narrative: General: Patient is lying in bed rest comfortably did not appear to be in acute distress Head: Atraumatic, normocephalic Eyes: PERRL bilaterally, EOMI bilaterally, no conjunctival injection noted Neck: Soft, supple, trachea midline Cardiovascular: Patient tachycardic with a regular rhythm Respiratory: Clear to auscultation bilaterally Abdomen: Soft, nondistended, no tenderness to palpation Extremities: +5/5 strength noted in the bilateral lower extremities Neurological: Patient followed commands and that he was at [facility] year is 2024 NIH of 0 GCS 15 Skin: Warm, dry, intact no rashes or lesions noted Const Vital Signs: 07/07/25 13:18 07/07/25 13:18 07/07/25 13:24 Temperature 99.8 F H 99.8 F H 99.8 F H Temperature Source Oral Oral Oral Pulse Rate 101 H 100 101 H Respiratory Rate 17 17 17 Respiratory Effort Respiratory Pattern Blood Pressure 127/70 H 127/70 H 127/70 H Blood Pressure Mean 89 89 89 Pulse Ox 95 95 95 Oxygen Delivery Method Room Air Room Air Room Air 07/07/25 13:24 07/07/25 13:25 07/07/25 15:15 Temperature Temperature Source Pulse Rate 96 Respiratory Rate 20 H Respiratory Effort Normal Non-Labored Normal Respiratory Pattern Normal Blood Pressure 121/80 H Blood Pressure Mean 91 Pulse Ox 96 Oxygen Delivery Method MDM MDM MDM Narrative Medical decision making narrative: Patient is a 45-year-old male who presented to the emergency department with a chief complaint of whole body aches, fever, abnormal CT chest. On the differential diagnose includes but limited to cephalopathy secondary to a fever, electrolyte malady, intracranial mass, intracranial hemorrhage. Once workup is obtained and reviewed he will be reevaluated. Patient will be given IV fluids, Reglan and a gram of Tylenol. Patient CBC showed a leukocytosis of 14,000 this likely reactive secondary to his viral illness, hemoglobin stable at 11, platelet count was noted be 251. Patient sodium was noted be 139, potassium normal 3.5, creatinine 0.78. Patient AST and ALT were [address] head brain without contrast reviewed showed no acute findings. Once again I reviewed his CT of the chest that he had in the hospital at [place] and they showed a 5 cm mass that they are recommending follow-up on in the outpatient setting.Will add on blood cultures. Will give dose of Toradol before discharge. Patient ambulated well here in the emergency department no hypoxia no tachycardia. On reevaluation the patient at 3:20 PM he states that he feels much better and like to go home at this point time. He already has prescriptions for prednisone, Zofran ODT and potassium he is advised to continue take these as prescribed. He is encouraged to return with worsening symptoms or any other concerns. All question concerns answered he is discharged home in stable condition. Lab Data Labs: Laboratory Results - last 24 hr 07/07/25 14:23 WBC 14.7 H RBC 3.99 L Hgb 11.0 L Hct 33.5 L MCV 84.0 MCH 27.6 MCHC 32.8 RDW Std Deviation 40.8 RDW Coeff of Marisol 13.2 Plt Count 251 MPV 10.9 Immature Gran % (Auto) 0.500 Neut % (Auto) 90.8 H Lymph % (Auto) 2.7 L Mccone % (Auto) 5.7 Eos % (Auto) 0.1 Baso % (Auto) 0.2 Absolute Neuts (auto) 13.3 H Absolute Lymphs (auto) 0.40 L Nucleated RBC % 0 Sodium 139 Potassium 3.5 Chloride 105 Carbon Dioxide 23.6 Anion Gap 10 BUN 11 Creatinine 0.78 Estim Creat Clear Calc 167.92 Est GFR (MDRD) Non-Af 114 BUN/Creatinine Ratio 13.9 Glucose 125 H Calcium 8.4 Total Bilirubin 1.55 H AST 34 ALT 42 Alkaline Phosphatase 113 Total Protein 6.1 Albumin 2.9 L Globulin 3.2 Albumin/Globulin Ratio 0.9 Radiography Diagnostic Testing: Clinical Impression(s) from Imaging Studies Brain CT 07/07/25 14:30 IMPRESSION: Unremarkable CT head. No acute intracranial abnormalities. Reading Location: [facility] Discharge Plan Triage Chief Complaint: Cold Sx ED Provider: Jamarcus Groves Dx/Rx/DC Orders Clinical Impression: Viral syndrome, Generalized body aches, Fever Prescriptions: No Action Dupixent Pen 300 mg/2 mL pen injector SUBCUT Patient Comments: [NO ORIGINAL SIG] Wegovy 2.4 mg/0.75 mL pen injector 2.4 mg subcut QWEEK prednisone 20 mg tablet 40 mg PO DAILY 5 Days Qty: 10 0RF ondansetron 4 mg tablet,disintegrating 4 mg PO TID PRN (Reason: nausea and vomiting) Qty: 21 0RF Primary Care Provider: Miguelito SILVA Referrals: Miguelito SILVA [Other] Activity Restrictions/Additional Instructions: Continue supportive care by rotating Tylenol and ibuprofen laflnw-waw-[id number] when you do this you can take something every 3 hours pain max dose Tylenol 24 hours 4000 mg max dose of ibuprofen in 24 hours 3200 mg. Continue to use other prescription as prescribed and follow-up in the outpatient setting on the CT finding that was at [place]. Return with any other concerns Print Language: Maltese Disposition Disposition: Home, Self Care
[2025-07-07 15:06] LABS: AST(SGOT) 34 U/L (<=37); Alanine Aminotransfer ALT/SGPT 42 U/L (<=46); Albumin, Serum 2.9 g/dL (3.5-5.0); Alkaline Phosphatase 113 U/L (40-129); Anion Gap 10 (7-18); BUN 11 mg/dL (4-19); BUN/Creat Ratio 13.9 RATIO (10-20); Calcium,Total 8.4 mg/dL (7.6-11.0); Carbon Dioxide 23.6 mmol/L (20.0-29.0); Chloride 105 mmol/L (96-106); Estimated Creatinine Clearance 167.92 ml/min (50-250); Globulin 3.2 g/dL (2.2-4.2); Glucose 125 mg/dL (70-99); Potassium 3.5 mmol/L (3.5-5.1)
[2025-07-07 15:15] VITALS: BP 121/80; PULSE 96; RESP 20; O2SAT 96
[2025-07-07 15:21] VITALS: O2SAT 95
[2025-07-07 15:59] VITALS: BP 133/77; PULSE 86; RESP 18; TEMP 36.9; O2SAT 96
== END 2025-07-07 16:07 | disposition home or self-care (01) ==
PROVIDERS: Emergency Provider Emergency Medicine; Visit Provider Emergency Medicine
DX: B34.9 Viral infection, unspecified (principal); R50.9 Fever, unspecified; M79.10 Myalgia, unspecified site; F17.290 Nicotine dependence, other tobacco product, uncomplicated
CPT/HCPCS: 70450; 80053; 85025; 87040; 87077; 96361; 96374; 96375; 99285; A4216